=== PATIENT | male | born 1960 | race Caucasian/White ===

== ENCOUNTER 2020-06-09 17:36 | Emergency (ER) | payer MEDICARE, SELFPAY ==
--- NOTE | 2020-06-09 17:59 | ED.EYEPROB ---
HPI - Eye Problem General Chief complaint: Eye Problems Stated complaint: eye trouble Time Seen by Provider: 06/09/20 17:59 Source: patient Mode of arrival: ambulatory Limitations: no limitations History of Present Illness HPI Narrative: 59 year-old man comes to the ED today for eye pain and redness that started yesterday after he had some engine degrees during it. 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 It reflected back off the motor in into his eye. He irrigated his eye. He was able to call [employer] this morning but after he woke up from a nap today he noticed that he had crusting around his eye and was difficult to open his eye. He has some mild blurriness to his left vision. He normally wears contacts and has had rust/FB removed from his left eye. He states his tetanus was in the last for 5 years. MD chief complaint: eye pain, eye redness and eye injury Onset (ago): day(s) (1) Onset description: sudden Duration: constant Location: left eye Eye Symptoms: burning and redness Place: work Mechanism: chemical exposure Severity: moderate Context: contact lens use Treatments Prior to Arrival: irrigated eye and removed contact lens Related Data Patient tetanus UTD: Yes Home Medications Medication Instructions Recorded Confirmed atorvastatin 80 mg PO DAILY 06/09/20 06/09/20 carvedilol 6.25 mg PO DAILY 06/09/20 06/09/20 cetirizine 10 mg PO DAILY 06/09/20 06/09/20 citalopram 40 mg PO DAILY 06/09/20 06/09/20 clopidogrel 75 mg PO DAILY 06/09/20 06/09/20 furosemide [Lasix] 20 mg PO BID 06/09/20 06/09/20 lisinopril 40 mg PO DAILY 06/09/20 06/09/20 spironolactone 50 mg PO DAILY 06/09/20 06/09/20 Allergies Allergy/AdvReac Type Severity Reaction Status Date / Time amoxicillin Allergy Severe Hives / Verified 06/09/20 18:12 Red Face Review of Systems Constitutional: Constitutional: Denies chills and Denies fever(s) Eyes: Eyes: Reports as per HPI, Reports change in vision and Denies photophobia ENT: Denies dysphagia, Denies nasal congestion and Denies sore throat Cardiovascular: Cardiovascular: Denies chest pain and Denies radiating jaw, neck or arm pain Respiratory: Respiratory: Denies cough, Denies dyspnea and Denies wheezing Gastrointestinal: Gastrointestinal: Denies nausea and Denies vomiting Musculoskeletal: Musculoskeletal: Denies arthralgias and Denies joint swelling Integumentary/Breasts: Skin/Breast: Denies pruritus, Denies erythema and Denies rash Neurologic: Denies vertigo, Denies dizziness and Denies syncope Allergic/Immunologic: Allergic/Immunologic: Denies lip swelling and Denies wheezing PMFSH Past Medical History Medical History CAD (coronary artery disease) Hypertension Surgical History Surgical History S/P CABG (coronary artery bypass graft) Stented coronary artery x 8 Social History Social History Smoking status: Never smoker Substance use type: marijuana Living arrangements: with family Gender identity (if verbalized by the patient): Male Exam Const: General: healthy appearing and alert Orientation/consciousness: patient oriented x3 Limitations: no limitations Other: mild acute distress HENMT: Head: normal to inspection Face and sinus: normal facial exam Eyes: Pupils: Equal, round and reactive pupils present EOM: EOMs intact bilaterally Other: Subconjunctival hemorrhage on the nasal aspect of the left sclera without swelling. There is no fluorescein uptake of the limbus or cornea. Sweeping the lower fossa and the inverted upper eyelid with a moistened swab revealed no foreign bodies. No corneal foreign bodies are detected. Cornea is clear. Skin: General skin exam: normal color, no jaundice and no
[2020-06-09 18:00] VITALS: BP 106/55; PULSE 87; RESP 18; TEMP 37.1; O2SAT 96
[2020-06-09] MEDS: DACRIOSE EYE IRRIGATION 118 ML BOTTLE 30 ML LEFT EYE (18:24)
[2020-06-09] MEDS: TETRACAINE HCL 0.5% OPHTH SOLN 4 ML BTL 2 DROP LEFT EYE (18:25)
[2020-06-09] MEDS: FLUORESCEIN SOD 1 MG/STRIP LEFT EYE (18:25)
[2020-06-09 18:52] VITALS: BP 131/65; PULSE 62; RESP 16; TEMP 36.5; O2SAT 99
== END 2020-06-09 18:54 | disposition home or self-care (01) ==
PROVIDERS: Emergency Provider Emergency Medicine
DX: H11.32 Conjunctival hemorrhage, left eye (principal)
CPT/HCPCS: 99283; A9270

== ENCOUNTER 2022-07-29 20:42 | Emergency (ER) | payer MEDICARE, SELFPAY ==
[2022-07-29] VITALS (8 sets, daily range): BP systolic 121–130; BP diastolic 66–88; PULSE 70–84; RESP 20–22; TEMP 37; O2SAT 94–96
--- NOTE | ~2022-07-29 | XR_ITS ---
EXAMINATION: XR chest 1V portable DATE: 07/29/2022 21:15 INDICATION: Shortness of breath TECHNIQUE: frontal view of the chest was obtained. COMPARISON: None FINDINGS: The lungs are clear with no focal airspace opacities, pulmonary edema, pleural effusion or pneumothor ax. Cardiomegaly. Dual lead pacemaker seen with leads projecting over the expected locations of the r ight atrium and right ventricle. Median sternotomy wires and mediastinal surgical clips are seen, lik alcira from prior coronary artery bypass grafting. Reverse left total shoulder arthroplasty. 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 IMPRESSION: 1. Cardiomegaly. Reviewed, dictated and finalized at location A. IMPRESSION: 1. Cardiomegaly.
--- NOTE | 2022-07-29 20:50 | ECG_ITS ---
Measurements Intervals [place] Rate: 77 P: 59 GA: 160 QRS: 50 QRSD: 98 T: 140 QT: 378 QTc: 429 Interpretive Statements SINUS RHYTHM VENTRICULAR COUPLET AND VENTRICULAR PREMATURE COMPLEXES INCOMPLETE LEFT BUNDLE BRANCH BLOCK POSSIBLE LEFT ATRIAL ENLARGEMENT ST-T WAVE ABNORMALITY IN ANTEROLATERAL LEADS- CONSIDER ISCHEMIA ABNORMAL ECG NO PREVIOUS ECG AVAILABLE FOR COMPARISON Electronically Signed On 07-30-2022 6:40:21 CDT by Rolf Castro D.O.
--- NOTE | 2022-07-29 21:07 | ED.CHESTPAIN ---
HPI - Chest Pain General Chief Complaint: Shortness of Breath/Dyspnea Stated Complaint: chest pains Time Seen by Provider: 07/29/22 20:49 Source: patient and family ( ) Mode of arrival: ambulatory Limitations: no limitations History of Present Illness HPI narrative: patient is a 61-year-old white male with history of coronary artery disease, coronary artery bypass graft x4, 8 stents, was just released from [facility] yesterday afternoon after spent 2 days therefore shortness of breath. Patient's stated his troponin was elevated but the doctors did not think he had a heart attack. He stated he had 2 hours of AFib in June and was supposed to see the drill presser as an outpatient for this. patient stated they diuresed him of 8 lb down to 245 lb which is his dry weight . Patient stated that he slept most of the day and then woke up around 7:30pm with retrosternal chest pain and shortness of breath and diaphoresis. Pain is gone now but it recurs if he lays back in a starts getting short of breath and breaks out in a sweat again. He has had 2 diarrhea nonbloody stools today. Related Data Home Medications Medication Instructions Recorded Confirmed atorvastatin 80 mg tablet 80 mg PO DAILY 06/09/20 07/29/22 citalopram 40 mg tablet 40 mg PO DAILY 06/09/20 07/29/22 clopidogrel 75 mg tablet 75 mg PO DAILY 06/09/20 07/29/22 furosemide 20 mg tablet (Lasix) 20 mg PO BID 06/09/20 07/29/22 empagliflozin 25 mg tablet 25 mg PO DAILY 07/29/22 07/29/22 metoprolol succinate 100 mg 100 mg PO DAILY 07/29/22 07/29/22 tablet,extended release 24 hr sacubitril 97 mg-valsartan 103 mg 1 tablet PO BID 07/29/22 07/29/22 tablet sennosides 8.6 mg tablet 8.6 mg PO BID 07/29/22 07/29/22 spironolactone 25 mg tablet 12.5 mg PO DAILY 07/29/22 07/29/22 Allergies Allergy/AdvReac Type Severity Reaction Status Date / Time amoxicillin Allergy Severe Hives / Verified 07/29/22 20:57 Red Face Review of Systems Review of Systems: All systems reviewed & are unremarkable except as noted in HPI and below Constitutional: Constitutional: Denies chills, Denies fatigue, Denies fever(s) and Denies weakness Eyes: Eyes: Reports no additional eye complaints ENT: Reports system reviewed and no additional complaints, except as documented, Denies dizziness, Denies nasal congestion and Denies sore throat Cardiovascular: Cardiovascular: Reports as per HPI, Reports no additional cardiovascular complaints, Reports chest pain, Denies rapid heart rate, Denies radiating jaw, neck or arm pain and Denies slow heart rate Respiratory: Respiratory: Reports as per HPI, Reports no additional respiratory complaints, Denies cough, Reports dyspnea and Denies wheezing Gastrointestinal: Gastrointestinal: Denies no additional gastrointestinal complaints, Denies abdominal pain, Denies constipation, Denies heartburn, Reports diarrhea, Denies nausea and Denies vomiting Genitourinary: Genitourinary: Reports no additional male genitourinary complaints Musculoskeletal: Musculoskeletal: Reports no additional musculoskeletal complaints, Reports back pain ( Mild low back pain), Denies myalgias, Denies arthralgias, Denies joint swelling and Denies muscle cramps Integumentary/Breasts: Skin/Breast: Reports system reviewed and no additional complaints, except as docu and Denies rash Neurologic: Reports system reviewed and no additional complaints, except as documented, Denies dizziness, Denies syncope, Denies headache(s), Denies focal weakness, Denies numbness and Denies weakness Psychiatric: Psychiatric: Reports no additional psychiatric complaints Endocrine: Endocrine: Reports no additional endocrine complaints Hematologic/Lymphatic: Hematologic/Lymphatic: Reports no additional hematologic/lymphatic complaints [facility] Past Medical History Medical History (Updated 07/29/22 @ 22:01 by George Morel MD) CAD (coronary artery disease) Hypertension Surgical History Jon
[2022-07-29 21:19] LABS: Basophils Absolute Auto 0.04 K/mm3 (0.00-0.10); Basophils Percent Auto 0.4 % (0.0-1.0); Eosinophils Percent Auto 0.9 % (1.0-6.0); Hematocrit 44.7 % (40.0-54.0); Hemoglobin 14.8 g/dL (14.0-18.0); Immature Granulocyte Absolute 0.06 K/mm3 (0.00-0.00); Immature Granulocyte Percent A 0.6 % (0.0-0.0); Lymphocytes Absolute Auto 1.65 K/mm3 (1.10-4.50); Lymphocytes Percent Auto 15.5 % (18.0-42.0); Mean Corpuscular HGB Conc 33.1 g/dL (32.0-36.0); Mean Corpuscular Hemoglobin 31.6 pg (27.0-31.0); Mean Corpuscular Volume 95.5 fL (78.0-102.0); Mean Platelet Volume 10.2 fl (8.7-11.0); Monocytes Absolute Auto 0.81 K/mm3 (0.10-0.90); Monocytes Percent Auto 7.6 % (2.0-11.0); Platelet Count Result 267 K/mm3 (150-420); Red Blood Count 4.68 M/mm3 (4.70-6.10); Red Cell Distribution Width 14.1 % (11.6-14.4); White Blood Count 10.6 K/mm3 (4.8-10.8)
[2022-07-29] MEDS: ASPIRIN 81 MG CHEWABLE TABLET 324 MG PO (21:24)
--- NOTE | 2022-07-29 21:30 | PC.NURSE ---
2050 monitor applied, SR with occas PVC
[2022-07-29 21:34] LABS: INR 1.6; Partial Thromboplastin Time 27.6 SEC (23.90-30.70); Prothrombin Time 16.5 Seconds (9.50-12.10)
[2022-07-29 21:41] LABS: Alanine Aminotransferase 185 U/L (16-63); Albumin Level 3.5 g/dL (3.4-5.0); Alkaline Phosphatase 221 U/L (46-116); Anion Gap 15 mmol/L (8-16); Aspartate Amino Transferase 114 U/L (15-37); Bilirubin,Total 2.1 mg/dL (0.00-1.00); Blood Urea Nitrogen 42 mg/dL (7-18); Calcium 8.9 mg/dL (8.5-10.1); Carbon Dioxide 20 mmol/L (21-32); Chloride 101 mmol/L (98-108); Estimated CRCL calculation 51 ml/min; Estimated Glomerular Filt Rate 38; Glucose 152 mg/dL (70-99); Lipase 172 U/L (73-393); NT Pro B Type Natriuretic Pept 12205 pg/mL (0-125); Osmolality Calculated 295 mOsm/kg (285-295); Potassium 3.6 mmol/L (3.5-5.1); Sodium 136 mmol/L (136-145); Total Protein 6.8 g/dL (6.4-8.2)
[2022-07-29 21:43] LABS: Troponin I 286.2 ng/L (0.00-60.4)
[2022-07-29] MEDS: ENOXAPARIN 120 MG/0.8 ML SYRINGE 110 MG SUB-Q (21:47)
--- NOTE | 2022-07-29 21:51 | ECG_ITS ---
Measurements Intervals [place] Rate: 69 P: 61 TN: 161 QRS: 53 QRSD: 104 T: 141 QT: 415 QTc: 446 Interpretive Statements SINUS RHYTHM VENTRICULAR PREMATURE COMPLEXES POSSIBLE LEFT ATRIAL ENLARGEMENT INCOMPLETE LEFT BUNDLE BRANCH BLOCK ST-T WAVE ABNORMALITY IN ANTEROLATERAL LEADS- CONSIDER ISCHEMIA COMPARED TO ECG 07/29/2022 20:57:08 NO SIGNIFICANT CHANGES Electronically Signed On 07-30-2022 6:41:29 CDT by Rolf Castro D.O.
--- NOTE | 2022-07-30 00:15 | ECG_ITS ---
Measurements Intervals [place] Rate: 75 P: 59 LA: 157 QRS: 50 QRSD: 102 T: 120 QT: 410 QTc: 460 Interpretive Statements SINUS RHYTHM VENTRICULAR PREMATURE COMPLEX POSSIBLE LEFT ATRIAL ENLARGEMENT INCOMPLETE LEFT BUNDLE BRANCH BLOCK ST-T WAVE ABNORMALITY IN ANTEROLATERAL LEADS- CONSIDER ISCHEMIA ABNORMAL ECG COMPARED TO ECG 07/29/2022 21:57:20 NO SIGNIFICANT CHANGES Electronically Signed On 07-30-2022 6:42:15 CDT by Rolf Castro D.O.
[2022-07-30 00:17] LABS: Troponin I 278.6 ng/L (0.00-60.4)
[2022-07-30 00:29] VITALS: BP 114/75; PULSE 74; RESP 16; O2SAT 96
[2022-07-30] MEDS: NITROGLYCERIN SL 0.4 MG TABLET SUBLINGUAL (01:01)
[2022-07-30 01:12] VITALS: BP 115/83; PULSE 74; RESP 20; TEMP 36.6; O2SAT 99
--- NOTE | 2022-07-30 01:42 | PC.NURSE ---
abdiass busy with other transfers, waiting a rig to take patient to [facility]
[2022-07-30 02:14] VITALS: BP 112/87; PULSE 72; RESP 20; O2SAT 94
[2022-07-30 03:19] VITALS: BP 105/75; PULSE 74; RESP 20; TEMP 37.2; O2SAT 94
== END 2022-07-30 03:21 ==
PROVIDERS: Emergency Provider Emergency Medicine
DX: R07.9 Chest pain, unspecified (principal); I50.9 Heart failure, unspecified; R79.1 Abnormal coagulation profile; I21.4 Non-ST elevation (NSTEMI) myocardial infarction
CPT/HCPCS: 36415; 71045; 80053; 83690; 83880; 84484; 85025; 85380; 85610; 85730; 93005; 96372; 99285; A9270; J1650

== ENCOUNTER 2022-11-01 07:17 | Inpatient (IN) | payer MEDICARE, OTHER, SELFPAY ==
[2022-11-01] VITALS (16 sets, daily range): BP systolic 102–137; BP diastolic 65–106; PULSE 80–100; RESP 15–28; TEMP 35.9–36.7; O2SAT 95–100; BMI 31.1; BMI 30.7
--- NOTE | ~2022-11-01 | XR_ITS ---
EXAMINATION: XR chest 1V portable DATE: 11/03/2022 08:35 INDICATION: Congestive heart failure. TECHNIQUE: A single frontal view of the chest was obtained. COMPARISON: Chest 2 views 11/01/2022 FINDINGS: There is no pneumonia, pleural effusion, or pneumothorax. Cardiomegaly is noted. Median alvin rnotomy wires and mediastinal surgical clips are seen, likely from prior coronary artery bypass graft ing. There is a right chest wall pacer with leads in the right atrium and right ventricle. There is a left shoulder arthroplasty. IMPRESSION: 1. Cardiomegaly. Reviewed, dictated and finalized at location A. ING MACHINE ASSEMBLER IMPRESSION: 1. Cardiomegaly.
--- NOTE | ~2022-11-01 | XR_ITS ---
EXAMINATION: XR chest 1V portable DATE: 11/04/2022 16:07 INDICATION: Shortness of breath. TECHNIQUE: A single frontal view of the chest was obtained on 2 radiographs. COMPARISON: Chest single view 11/04/2022 FINDINGS: There is mild atelectasis in left lower lung zone. No pleural effusion or pneumothorax. Car diomegaly is noted. Median sternotomy wires and mediastinal surgical clips are seen, likely from prio r coronary artery bypass grafting. There is a right chest wall pacer with leads in the right atrium a nd right ventricle. There is a left shoulder arthroplasty. IMPRESSION: 1. Mild atelectasis in left lower lung zone. 2. Cardiomegaly. Reviewed, dictated and finalized at location A. INSPECTOR
--- NOTE | ~2022-11-01 | XR_ITS ---
Supine and upright views of the abdomen Clinical history: Vomiting Findings: Bowel gas pattern is nonspecific. No evidence for obstruction or free air. No abnormal mass lesion or calcification is seen. Right hip arthroplasty present. Impression: Nonspecific bowel gas pattern. Reviewed, dictated and finalized at [facility]. CENTER TRAINER Impression: Nonspecific bowel gas pattern.
--- NOTE | ~2022-11-01 | US_ITS ---
EXAMINATION: US abdomen limited DATE: 11/03/2022 17:44 INDICATION: Elevated LFTs TECHNIQUE: Multiple grayscale and Doppler ultrasound images of limited portions of the abdomen were o btained. COMPARISON: None available. FINDINGS: Not visualized. The liver is enlarged with slightly increased echogenicity and normal echotexture. No surface nodularity. Normal hepatopetal flow in the main portal vein. Fluid-filled gallbladder, witho ut stones or sludge. Prominent echogenic fat in the lawrence hepatis. Gallbladder wall thickening up to 6 mm. The common bile duct measures 4 mm. There was no sonographic Hooper sign. IMPRESSION: Hepatomegaly. Echogenic liver, most commonly due to steatosis but also can be seen with hepatitis and fibrosis. Nonspecific gallbladder wall thickening. Reviewed, dictated and finalized at location K. BALL GLOVE SHAPER IMPRESSION: Hepatomegaly. Echogenic liver, most commonly due to steatosis but also can be s een with hepatitis and fibrosis. Nonspecific gallbladder wall thickening.
--- NOTE | ~2022-11-01 | XR_ITS ---
Portable chest x-ray Comparison: 11/04/2022 Clinical History: CHF Findings: Lungs remain clear, without focal consolidation or pleural effusion. Cardiomediastinal si lhouette is stable, with pacemaker device. Bones and soft tissues are unremarkable. Impression: Clear lungs. Stable cardiomegaly, status post CABG with pacemaker device Reviewed, dictated and finalized at location . TRONIC COMPONENTS ASSEMBLER Impression: Clear lungs. Stable cardiomegaly, status post CABG with pacemaker device
--- NOTE | ~2022-11-01 | XR_ITS ---
Portable chest x-ray Comparison: 11/03/2022 Clinical History: CHF Findings: Lungs are clear, without focal consolidation or pleural effusion. Cardiomediastinal silho uette is stable, status post CABG with pacemaker device. Left shoulder arthroplasty noted. Impression: Clear lungs. Stable cardiomegaly, status post CABG with pacemaker device. Reviewed, dictated and finalized at location . RETE SAW OPERATOR Impression: Clear lungs. Stable cardiomegaly, status post CABG with pacemaker device.
--- NOTE | ~2022-11-01 | XR_ITS ---
EXAMINATION: XR chest 2V DATE: 11/01/2022 08:04 INDICATION: Shortness of breath. TECHNIQUE: Frontal and lateral views of the chest were obtained. COMPARISON: Chest single view 07/29/2022 FINDINGS: Maddie B-lines are noted, consistent with mild pulmonary edema. No pleural effusion or pneu mothorax. Cardiomegaly is noted. Median sternotomy wires and mediastinal surgical clips are seen, lik alcira from prior coronary artery bypass grafting. There is a right chest wall pacer with leads in the r ight atrium and right ventricle. There are changes of left shoulder arthroplasty. IMPRESSION: 1. Mild pulmonary edema. 2. Cardiomegaly. Reviewed, dictated and finalized at location A. OM POLISHER
--- NOTE | 2022-11-01 07:18 | ECG_ITS ---
Measurements Intervals [place] Rate: 102 P: 49 ME: 171 QRS: 52 QRSD: 102 T: 151 QT: 382 QTc: 499 Interpretive Statements SINUS TACHYCARDIA FREQUENT VENTRICULAR PREMATURE COMPLEXES ST-T WAVE ABNORMALITY IN ANTEROLATERAL LEADS- CONSIDER ISCHEMIA BASELINE ARTIFACT- I, III, AVR, AVL, V2 ABNORMAL ECG COMPARED TO ECG 07/30/2022 00:20:42 SINUS TACHYCARDIA NOW PRESENT Electronically Signed On 11-01-2022 7:50:23 CLINICAL COORDINATOR by Rolf Castro D.O.
[2022-11-01 08:03] LABS: Basophils Percent Auto 0.5 % (0.2-1.2); Eosinophils Absolute Auto 0.1 K/mm3 (0-0.3); Eosinophils Percent Auto 0.8 % (0-4.4); Hematocrit 44.8 % (42.0-52.0); Hemoglobin 14.5 g/dL (14.0-18.0); Immature Granulocyte Absolute 0.04 K/mm3 (0.00-0.031); Immature Granulocyte Percent A 0.5 % (0-0.5); Lymphocytes Absolute Auto 0.93 K/mm3 (0.9-3.2); Lymphocytes Percent Auto 11.3 % (18.3-44.2); Mean Corpuscular HGB Conc 32.4 g/dl (32-36); Mean Corpuscular Hemoglobin 29.4 pg (26-34); Mean Corpuscular Volume 90.7 fl (80-100); Mean Platelet Volume 10.1 fl (7.4-10.4); Monocytes Absolute Auto 0.5 K/mm3 (0.1-0.6); Monocytes Percent Auto 6.6 % (2.6-8.5); Neutrophils Absolute Auto 6.6 K/mm3 (1.3-6.7); Neutrophils Percent Auto 80.3 % (45.5-73.1); Platelet Count Result 252 k/mm3 (150-375); Red Blood Count 4.94 M/mm3 (4.6-6.20); Red Cell Distribution Width 16.2 % (11.5-14.5); White Blood Count 8.2 K/mm3 (4.5-10.0)
[2022-11-01 08:19] LABS: Alanine Aminotransferase 49 U/L (6-50); Albumin Level 4.7 g/dL (3.5-5.1); Alkaline Phosphatase 183 U/L (38-126); Anion Gap 12 mmol/L (8-16); Aspartate Amino Transferase 39 U/L (17-59); Bilirubin,Total 1.6 mg/dL (0.2-1.3); Blood Urea Nitrogen 31 mg/dL (9-20); Calcium 9.2 mg/dL (8.4-10.2); Carbon Dioxide 25 mmol/L (22-30); Chloride 96 mmol/L (98-107); Estimated CRCL calculation 63 ml/min; Estimated Glomerular Filt Rate 52; Glucose 125 mg/dL (65-110); Potassium 3.3 mmol/L (3.4-5.0); Sodium 133 mmol/L (137-145)
--- NOTE | 2022-11-01 08:35 | ED.GENADULT ---
HPI - General Adult General Chief complaint: Shortness of Breath/Dyspnea Stated complaint: SOB History of Present Illness HPI narrative: This is a 62-year-old male with history of heart failure and significant cardiac disease presenting ED with chief complaint of shortness of breath. Patient says that the shortness of breath started this morning, associated with nausea and vomiting, headache. He denies fever, chills, productive cough, chest pain or diarrhea. Patient has been compliant with his CHF medications. He is vaccinated against COVID and flu. patient has been in hospital repeatedly for CHF exacerbation and is having his medications adjusted. Related Data Home Medications Medication Instructions Recorded Confirmed atorvastatin 80 mg tablet 80 mg PO DAILY 06/09/20 07/29/22 citalopram 40 mg tablet 40 mg PO DAILY 06/09/20 07/29/22 clopidogrel 75 mg tablet 75 mg PO DAILY 06/09/20 07/29/22 furosemide 20 mg tablet (Lasix) 20 mg PO BID 06/09/20 07/29/22 empagliflozin 25 mg tablet 25 mg PO DAILY 07/29/22 07/29/22 metoprolol succinate 100 mg 100 mg PO DAILY 07/29/22 07/29/22 tablet,extended release 24 hr sacubitril 97 mg-valsartan 103 mg 1 tablet PO BID 07/29/22 07/29/22 tablet sennosides 8.6 mg tablet 8.6 mg PO BID 07/29/22 07/29/22 spironolactone 25 mg tablet 12.5 mg PO DAILY 07/29/22 07/29/22 Allergies Allergy/AdvReac Type Severity Reaction Status Date / Time amoxicillin Allergy Severe Hives / Verified 11/01/22 07:18 Red Face PMFSH Past Medical History Medical History CAD (coronary artery disease) Heart failure Hypertension Surgical History Surgical History History of cardiac catheterization heart catheterization in December of 2021 S/P appendectomy S/P CABG (coronary artery bypass graft) Stented coronary artery x 8 Social History Social History Smoking status: Never smoker Substance use type: marijuana Gender identity (if verbalized by the patient): Male Exam Narrative: APPEARANCE: No apparent distress. Head: atraumatic. EYES: EOMI, NOSE: Atraumatic NECK: Trachea midline RESPIRATORY: Mildly increased rate of breathing, scattered rales, CARDIOVASCULAR: RRR, no peripheral edema ABDOMINAL: distended, nontender no guarding or rebound MUSCULOSKELETAl: No obvious deformities NEURO: Alert. Moving 4/4 extremities SKIN:: Warm, dry. Normal color PSYCHIATRIC: Normal affect Course Vital Signs Vital signs: Vital Signs Temperature 98.1 F 11/01/22 07:11 Pulse Rate 100 11/01/22 07:11 Respiratory Rate 20 11/01/22 07:11 Blood Pressure 109/75 11/01/22 07:11 Pulse Oximetry 98 11/01/22 07:11 Oxygen Delivery Room Air 11/01/22 07:11 Temperature 98.1 F 11/01/22 07:11 Pulse Rate 93 11/01/22 10:00 Respiratory Rate 18 11/01/22 10:00 Blood Pressure 132/84 11/01/22 10:00 Pulse Oximetry 96 11/01/22 10:00 Oxygen Delivery Room Air 11/01/22 08:35 Medical Decision Making MDM Narrative Medical decision making narrative: This is a 62-year-old male with history of CHF and significant coronary artery disease presenting ED with shortness of breath. Differential includes CHF exacerbation, viral syndrome, pneumonia, ACS. Chest x-ray, EKG and lab work has been ordered. EKG interpretation: Rhythm [sinus], Rate 102, [place] -[normal], DC -[normal], QRS [narrow], QTC [normal], T waves - T-wave inversions in the lateral leads, ST Segments - [Negative for concerning elevations] Final interpretations: sinus tachycardia with nonspecific T-wave abnormalities chest x-ray showed cardiomegaly with mild pulmonary vascular congestion. Viral swabs [place] [address]. Initial troponin was 0.193. Patient has been given 325 of aspirin. Potassium is 3.3. This will be repleted.
[2022-11-01 08:36] LABS: NT Pro B Type Natriuretic Pept 15800 pg/mL (5-100); Troponin I 0.193 ng/mL (0.000-0.034)
[2022-11-01 08:47] LABS: INR 1.7; Prothrombin Time 19.5 Seconds (11.1-14.7)
[2022-11-01 09:51] LABS: Influenza A QL RT-PCR Negative (Negative); Influenza B QL RT-PCR Negative (Negative); SARS-CoV-2 RNA PCR Negative
[2022-11-01] MEDS: FUROSEMIDE INJ 100 MG/10 ML VIAL 80 MG IV PUSH ×2 (09:57→16:53)
[2022-11-01] MEDS: POTASSIUM CHLORIDE 20 MEQ TABLET 40 MEQ PO (10:44)
--- NOTE | 2022-11-01 11:06 | PC.NURSE ---
heart healthy food tray ordered
[2022-11-01] MEDS: ASPIRIN 81 MG CHEWABLE TABLET 324 MG PO (11:14)
--- NOTE | 2022-11-01 11:50 | ADMGEN ---
This patient, Ernie Strickland, was admitted to IMU Room 211-01. Patient/family oriented to hospital policies and general routines including ID bracelet, bed and alarms, visiting hours, pain management, procedures, bathroom and other care routines, personal items, smoking policy, room service/diet, and visiting hours. Information on how to activate the Rapid Response Team has been discussed. Patient/Family are encouraged to report perceived risks to care and to ask questions if they do not understand what they are told or what they should do.
--- NOTE | 2022-11-01 12:23 | PM.IMHP ---
H&P: HPI History of Present Illness Date/Time: 11/01/22 12:23 Chief Complaint: Shortness of breath Narrative: This is a 62-year-old male patient who does have a history of coronary artery disease and congestive heart failure. The patient came to the emergency room with complaints of shortness of breath. Started this morning and was associated with nausea vomiting. He denies any nausea vomiting diarrhea or any age she is or fevers. The patient stated that he is compliant with his congestive heart failure medications. He has been vaccinated against COVID and influenza. The patient has had multiple admissions the hospital for congestive heart failure exacerbation. Sodium is 133, potassium 3.3 and chloride 96. BUN is 31 creatinine 1.4. [place] 0[place] [address]. The patient was given IV Lasix and potassium in the emergency room. He was also given an aspirin. EKG was read as sinus tachycardia frequent ventricular premature complexes ST T wave abnormalities. Chest x-ray was read as mild pulmonary edema. Cardiomegaly. Patient is being admitted to inpatient status on the date of service of 11/01/2022 Review of Systems Review of Systems: See HPI All systems reviewed & are unremarkable except as noted in HPI and below Constitutional: Constitutional: Reports as per HPI and Reports no additional constitutional complaints Eyes: Eyes: Reports as per HPI and Reports no additional eye complaints ENT: Reports system reviewed and no additional complaints, except as documented and Reports Normal hearing present Cardiovascular: Cardiovascular: Reports no additional cardiovascular complaints Respiratory: Respiratory: Reports no additional respiratory complaints and Reports no additional respiratory complaints Gastrointestinal: Gastrointestinal: Reports as per HPI and Reports no additional gastrointestinal complaints Musculoskeletal: Musculoskeletal: Reports no additional musculoskeletal complaints Integumentary/Breasts: Skin/Breast: Reports system reviewed and no additional complaints, except as docu and Reports as per HPI Neurologic: Reports system reviewed and no additional complaints, except as documented, Reports as per HPI and Reports Normal hearing present Psychiatric: Psychiatric: Reports no additional psychiatric complaints and Reports as per HPI Endocrine: Endocrine: Reports no additional endocrine complaints Hematologic/Lymphatic: Hematologic/Lymphatic: Reports no additional hematologic/lymphatic complaints Allergic/Immunologic: Allergic/Immunologic: Reports no additional allergic/immunologic complaints [facility] Past Medical History Medical History (Updated 11/01/22 @ 16:11 by Estephanie Crawford NP) Anxiety CAD (coronary artery disease) Chronic renal failure, stage 3 (moderate) Depression Heart failure Hyperlipidemia Hypertension Surgical History Surgical History (Updated 11/01/22 @ 15:55 by Estephanie Crawford NP) History of cardiac catheterization heart catheterization in December of 2021 History of left knee replacement History of left shoulder replacement History of right knee joint replacement S/P appendectomy S/P CABG (coronary artery bypass graft) 4 vessel CABG Stented coronary artery x 8 Family History Family History Mother Congestive heart failure Diabetes mellitus Sibling Congestive heart failure Renal disease Diabetes mellitus Sibling Diabetes mellitus Social History Social History (Updated 11/01/22 @ 15:57 by Estephanie Crawford NP) Social History: The patient resides with his girlfriend. He is a lifelong nonsmoker. He has 1 son. He is and he is disabled. He denies any alcohol marijuana or illicit drugs. Code status is full code Smoking status: Never smoker Alcohol intake: never Substance use type: marijuana Last use: 10/31/22 Lack of Transportation: No Lack of Food: Never True Current Housing: I
[2022-11-01 15:25] LABS: Glucose Point of Care 127 mg/dl (65-105)
[2022-11-01] MEDS: APIXABAN 5 MG TABLET PO (16:53)
[2022-11-01 18:23] LABS: Troponin I 0.189 ng/mL (0.000-0.034)
[2022-11-01 20:08] LABS: Glucose Point of Care 131 mg/dl (65-105)
[2022-11-01] MEDS: RANOLAZINE 500 MG TAB.ER.12H PO (20:20)
[2022-11-02] VITALS (31 sets, daily range): BP systolic 111–150; BP diastolic 72–111; PULSE 83–117; RESP 15–29; TEMP 36.4–36.6; O2SAT 93–100
--- NOTE | 2022-11-02 | ECHO_ITS ---
Patient Info Name: Ernie Strickland Age: 62 years : 1960 Gender: Male Ht: 73 in Wt: 232 lbs BSA: 2.35 m2 HR: 90 bpm BP: 111 / 73 mmHg Heart Rhythm: Sinus Rhythm Technical Quality: Fair, Good Exam Date: 11/02/2022 9:20 AM Exam Location: [facility] Pulmonary Exam Room: 211 Patient Status: Inpatient Admit Date: 11/01/2022 Staff Ordering Physician: Estephanie Crawford NP Industrial Maintenance Mechanic: Elise Parrish RCS Attending Provider: Gus Londono MD Referring Physician: Ty GAONA; Exam Type: CA echo dop color flow w con Study Info Indications - heart failure Complete two-dimensional, color flow and Doppler transthoracic echocardiogram is performed with contrast to opacify the left ventricle and to improve the deliniation of the left ventricle endocardial borders. Contrast/Agitated Saline Contrast/Ag. Saline: Definity Amount: 2.00 ml Administered By: Elise Parrish Existing IV Access: Yes IV Access Condition: patent with no signs of infiltration Summary 1. Moderate left ventricular dilation with relatively severe global systolic dysfunction. 2. Marked biatrial dilation. 3. Moderate to severe mitral regurgitation resulting from annular dilation. 4. Moderate tricuspid regurgitation velocities suggest moderate if not severely elevated pulmonary artery pressure. 5. Pacemaker/ICD lead noted in the right ventricle. Left Ventricle Left ventricular chamber dimension is moderately enlarged. Left ventricular systolic function is severely reduced, estimated at 20-25%. The left ventricular diastolic function is grade I diastolic dysfunction. Right Ventricle Right ventricular chamber dimension is mildly enlarged. Linear artifact in right ventricle suggestive of catheter(s), pacemaker lead(s), or ICD lead(s). Left Atria Left atrial chamber dimension is severely enlarged. Right Atria Right atrial chamber dimension is moderately enlarged. Aortic Valve The aortic valve is normal. Pulmonic Valve The pulmonic valve is not well visualized. Mitral Valve The mitral valve has normal leaflets. There is moderate to severe mitral valve regurgitation. Tricuspid Valve The tricuspid valve leaflets are normal. There is moderate tricuspid valve regurgitation. Pericardium/Pleural The pericardium appears normal. Aorta The aortic root size at the sinus of Valsalva is normal. Left Ventricular Outflow Tract Name Value Normal LVOT 2D LVOT Diameter 2.06 cm LVOT Doppler LVOT Peak Gradient 2 mmHg LVOT Mean Gradient 1 mmHg LVOT VTI 8.35 cm LVOT VTI/AV VTI Ratio 1.00 LVOT Stroke Volume 27.93 ml LVOT CO 9.17 l/min LVOT CI 3.90 L/min/m2 Pulmonic Valve Name Value Normal
[2022-11-02 04:44] LABS: Alanine Aminotransferase 38 U/L (6-50); Albumin Level 4.2 g/dL (3.5-5.1); Alkaline Phosphatase 163 U/L (38-126); Anion Gap 8 mmol/L (8-16); Aspartate Amino Transferase 33 U/L (17-59); Bilirubin,Total 1.4 mg/dL (0.2-1.3); Blood Urea Nitrogen 28 mg/dL (9-20); Calcium 8.5 mg/dL (8.4-10.2); Carbon Dioxide 25 mmol/L (22-30); Chloride 99 mmol/L (98-107); Estimated CRCL calculation 81 ml/min; Estimated Glomerular Filt Rate > 60; Glucose 119 mg/dL (65-110); Potassium 3.4 mmol/L (3.4-5.0); Sodium 132 mmol/L (137-145)
[2022-11-02 04:45] LABS: Lactic Acid Reflex 1.5 mmol/L (0.7-2.0)
[2022-11-02 04:56] LABS: Basophils Absolute Auto 0.1 K/mm3 (0.0-0.1); Basophils Percent Auto 0.7 % (0.2-1.2); Eosinophils Absolute Auto 0.1 K/mm3 (0-0.3); Eosinophils Percent Auto 0.8 % (0-4.4); Hematocrit 43.4 % (42.0-52.0); Hemoglobin 14.4 g/dL (14.0-18.0); Immature Granulocyte Absolute 0.04 K/mm3 (0.00-0.031); Immature Granulocyte Percent A 0.4 % (0-0.5); Lymphocytes Absolute Auto 1.34 K/mm3 (0.9-3.2); Lymphocytes Percent Auto 14.7 % (18.3-44.2); Mean Corpuscular HGB Conc 33.2 g/dl (32-36); Mean Corpuscular Hemoglobin 29.6 pg (26-34); Mean Corpuscular Volume 89.3 fl (80-100); Mean Platelet Volume 10.3 fl (7.4-10.4); Monocytes Absolute Auto 0.7 K/mm3 (0.1-0.6); Monocytes Percent Auto 7.9 % (2.6-8.5); Neutrophils Absolute Auto 6.9 K/mm3 (1.3-6.7); Neutrophils Percent Auto 75.5 % (45.5-73.1); Platelet Count Result 235 k/mm3 (150-375); Red Blood Count 4.86 M/mm3 (4.6-6.20); Red Cell Distribution Width 16.1 % (11.5-14.5); White Blood Count 9.1 K/mm3 (4.5-10.0)
[2022-11-02 05:49] LABS: Phosphorus 3.2 mg/dL (2.5-4.5)
--- NOTE | 2022-11-02 08:16 | PM.IMPN ---
Progress Note: A&P Assessment and Plan (1) Heart failure: Code(s): I50.9 - Heart failure, unspecified Status: Acute Assessment and Plan: Patient states his last EF was 20%, repeat echo pending Continue heart failure medications, IV diuresis with Lasix 80 mg IV twice daily (2) Hyperlipidemia: Code(s): E78.5 - Hyperlipidemia, unspecified Status: Acute Assessment and Plan: Continue statin (3) Anxiety: Code(s): F41.9 - Anxiety disorder, unspecified Status: Acute Assessment and Plan: Continue hydroxyzine (4) Depression: Code(s): F32.A - Depression, unspecified Status: Acute Assessment and Plan: Continue duloxetine (5) Hypertension: Code(s): I10 - Essential (primary) hypertension Status: Acute Assessment and Plan: Continue metoprolol (6) CAD (coronary artery disease): Code(s): I25.10 - Atherosclerotic heart disease of [place] coronary artery without angina pectoris Status: Acute Assessment and Plan: Elevated troponin of uncertain etiology, repeat pending, concern for unstable angina due to patient's presentation earlier today Appreciate cardiology consultation The patient has a history of a 4 vessel CABG and 8 stents (7) Hypokalemia: Code(s): E87.6 - Hypokalemia Status: Acute Assessment and Plan: Replete and recheck (8) Chronic renal failure, stage 3 (moderate): Code(s): N18.30 - Chronic kidney disease, stage 3 unspecified Status: Acute Assessment and Plan: Stable Plan DVT prophylaxis with Eliquis GI prophylaxis with PPI Code status full code Subjective Date/time seen: 11/02/22 08:16 Interval history: Called to bedside because patient had crushing chest pain, shortness a breath, cough, nausea with emesis and generalized malaise. He stated it felt like when he had his last heart attack in the past. No fevers or chills. He also had palpitations and was noted to have sinus tachycardia. Troponin has been elevated, last recheck still pending. EKG was abnormal, but did not look like acute [place]. vital signs showed tachycardia in the low 100s, pulse ox was 96% on 2 L, respirations 18 and blood pressure was 129 over and 89. Due to the patient's severe symptoms and concern that it was similar to his last episode, nitro sublingual x1 was given, morphine 2 mg IV and the patient chewed aspirin 325 mg. Cardiology was notified and consulted. Review of Systems Review of Systems: 12 point review of systems was assessed and was negative except as noted in the HPI Exam Narrative: General: Clammy, diaphoretic, clearly uncomfortable HEENT: Atraumatic, normocephalic, mucous membranes moist CV: Tachycardic, S1, S2 Lungs: Clear to auscultation bilaterally, no rales or crackles noted, no wheezes, good air entry Abdomen: Soft, nontender, nondistended Extremities: Normal to inspection Skin: No rashes noted, no lesions or wounds seen Objective Data Vital Signs Vital Signs: Vital Signs - 24 hr 11/01/22 08:35 11/01/22 08:35 11/01/22 09:36 Temperature Pulse Rate 87 96 Respiratory Rate 19 28 H Blood Pressure 133/98 H 102/76 Pulse Oximetry 96 98 95 Oxygen Delivery Room Air 11/01/22 10:00 11/01/22 10:45 11/01/22 11:15 Temperature Pulse Rate 93 93 85 Respiratory Rate 18 16 15 Blood Pressure 132/84 124/86 102/65 Pulse Oximetry 96 100 97 Oxygen Delivery 11/01/22 12:07 11/01/22 12:00 11/01/22 14:00 Temperature 96.6 F L Pulse Rate 98 96 80 Respiratory Rate 22 H Blood Pressure 137/106 H Pulse Oximetry 99 Oxygen Delivery 11/01/22 15:37 11/01/22 16:00 11/01/22 16:00 Temperature 96.9 F L Pulse Rate 86 83 Respiratory Rate 20 Blood Pressure 105/71 Pulse Oximetry 99 Oxygen Delivery Room Air 11/01/22 18:00 11/01/22 20:00 11/01/22 20:00 Temperature 97.9 F Pulse Rate 96 88 88 Respiratory Rate 18 18 Blood Pressu
[2022-11-02] MEDS: ATORVASTATIN 40 MG TABLET 80 MG PO (08:25)
[2022-11-02] MEDS: RANOLAZINE 500 MG TAB.ER.12H PO ×2 (08:25→19:59)
[2022-11-02] MEDS: FUROSEMIDE INJ 100 MG/10 ML VIAL 80 MG IV PUSH ×2 (08:25→17:11)
[2022-11-02] MEDS: CLOPIDOGREL BISULFATE 75 MG TABLET PO (08:26)
[2022-11-02] MEDS: LORATADINE 10 MG TABLET PO (08:26)
[2022-11-02] MEDS: PANTOPRAZOLE 40 MG TABLET PO (08:26)
[2022-11-02] MEDS: DULoxetine HCL 20 MG CAPSULE.DR PO (08:26)
[2022-11-02] MEDS: CHOLECALCIFEROL 1,000 UNITS TABLET 1000 UNITS PO (08:26)
[2022-11-02] MEDS: EMPAGLIFLOZIN 12.5 MG TABLET PO (08:26)
[2022-11-02] MEDS: APIXABAN 5 MG TABLET PO (08:26)
[2022-11-02] MEDS: POTASSIUM CHLORIDE 20 MEQ PACKET (FOR LIQUID) 40 MEQ PO (08:27)
[2022-11-02] MEDS: METOPROLOL SUCCINATE EXT REL 12.5 MG TABCR PO (08:27)
[2022-11-02] MEDS: PERFLUTREN LIPID MICROSPHERES 1.5 ML VIAL DILUTED TO 10 ML TOTAL VOLUME IV PUSH (10:00)
[2022-11-02] MEDS: MORPHINE SULFATE (*CRX) 2 MG/ML INJ IV PUSH ×2 (11:40→16:57)
[2022-11-02] MEDS: NITROGLYCERIN SL 0.4 MG TABLET SUBLINGUAL (11:42)
[2022-11-02] MEDS: ASPIRIN 81 MG CHEWABLE TABLET 243 MG PO (11:55)
[2022-11-02 13:02] LABS: Troponin I 0.164 ng/mL (0.000-0.034)
--- NOTE | 2022-11-02 13:13 | ECG_ITS ---
Measurements Intervals [place] Rate: 120 P: 43 MD: 151 QRS: 44 QRSD: 100 T: 174 QT: 288 QTc: 408 Interpretive Statements SINUS TACHYCARDIA INCOMPLETE LEFT BUNDLE BRANCH BLOCK ST-T WAVE ABNORMALITY IN HIGH LATERAL LEADS- CONSIDER ISCHEMIA BASELINE ARTIFACT- I, III, AVR, AVL, V1, V4-V6 ABNORMAL ECG COMPARED TO ECG 11/01/2022 07:17:39 HEART RATE HAS INCREASED Electronically Signed On 11-02-2022 14:49:34 LACQUERER by Rolf Castro D.O.
--- NOTE | 2022-11-02 14:49 | ECG_ITS ---
Measurements Intervals [place] Rate: 104 P: 56 MD: 161 QRS: 61 QRSD: 94 T: 171 QT: 329 QTc: 433 Interpretive Statements SINUS TACHYCARDIA VENTRICULAR PREMATURE COMPLEX POSSIBLE LEFT ATRIAL ENLARGEMENT DELAYED PRECORDIAL R/S TRANSITION ST-T WAVE ABNORMALITY IN INF/LAT LEADS- CONSIDER ISCHEMIA BASELINE ARTIFACT- I, II, III, AVR, AVL, AVF ABNORMAL ECG COMPARED TO ECG 11/02/2022 11:44:10 NO SIGNIFICANT CHANGES Electronically Signed On 11-04-2022 14:27:49 BOX ESTIMATOR by Rolf Castro D.O.
[2022-11-02] MEDS: NITROGLYCERIN/D5W 200 MCG/ML 50 MG/250 ML BTL IV CONT (15:29)
[2022-11-02] MEDS: AMIODARONE 150 MG/D5W 100 ML 150 MG/100 ML BAG 600 MG IV CONT (15:44)
[2022-11-02] MEDS: AMIODARONE 360 MG/D5W 200 ML 360 MG/200 ML BAG 33.33 MG IV CONT ×2 (15:44→20:39)
[2022-11-02 16:19] LABS: Basophils Absolute Auto 0.1 K/mm3 (0.0-0.1); Basophils Percent Auto 0.6 % (0.2-1.2); Eosinophils Absolute Auto 0.1 K/mm3 (0-0.3); Eosinophils Percent Auto 0.4 % (0-4.4); Hematocrit 50.7 % (42.0-52.0); Hemoglobin 16.2 g/dL (14.0-18.0); Immature Granulocyte Absolute 0.07 K/mm3 (0.00-0.031); Immature Granulocyte Percent A 0.6 % (0-0.5); Lymphocytes Absolute Auto 1.97 K/mm3 (0.9-3.2); Lymphocytes Percent Auto 16.3 % (18.3-44.2); Mean Corpuscular Hemoglobin 29.9 pg (26-34); Mean Corpuscular Volume 93.5 fl (80-100); Mean Platelet Volume 10.2 fl (7.4-10.4); Monocytes Percent Auto 8.6 % (2.6-8.5); Neutrophils Absolute Auto 8.9 K/mm3 (1.3-6.7); Neutrophils Percent Auto 73.5 % (45.5-73.1); Platelet Count Result 267 k/mm3 (150-375); Red Blood Count 5.42 M/mm3 (4.6-6.20); Red Cell Distribution Width 17.6 % (11.5-14.5); White Blood Count 12.1 K/mm3 (4.5-10.0)
[2022-11-02 16:32] LABS: Alanine Aminotransferase 39 U/L (6-50); Albumin Level 4.8 g/dL (3.5-5.1); Alkaline Phosphatase 181 U/L (38-126); Anion Gap 17 mmol/L (8-16); Aspartate Amino Transferase 35 U/L (17-59); Blood Urea Nitrogen 29 mg/dL (9-20); Calcium 9.5 mg/dL (8.4-10.2); Carbon Dioxide 19 mmol/L (22-30); Chloride 99 mmol/L (98-107); Estimated CRCL calculation 60 ml/min; Estimated Glomerular Filt Rate 48; Glucose 196 mg/dL (65-110); Potassium 4.4 mmol/L (3.4-5.0); Sodium 135 mmol/L (137-145)
[2022-11-02 16:39] LABS: INR 1.9; Prothrombin Time 21.4 Seconds (11.1-14.7)
[2022-11-02 16:41] LABS: Partial Thromboplastin Time 64.4 SECONDS (22.3-36.8)
[2022-11-02] MEDS: HEPARIN SODIUM 5,000 UNITS/ML VIAL 4000 UNITS IV PUSH (16:59)
[2022-11-02] MEDS: HEPARIN SOD/D5W 100 UNITS/ML 25,000 UNITS/250 ML BAG 10 UNITS IV CONT (17:00)
[2022-11-02] MEDS: LORazepam INJ (*CRX) 2 MG/ML VIAL 0.5 MG IV PUSH (19:35)
[2022-11-02 23:22] LABS: Partial Thromboplastin Time 112.2 SECONDS (22.3-36.8)
[2022-11-03] VITALS (29 sets, daily range): BP systolic 71–130; BP diastolic 46–102; PULSE 62–90; RESP 17–32; TEMP 36.3–37.2; O2SAT 95–100
[2022-11-03] MEDS: AMIODARONE 360 MG/D5W 200 ML 360 MG/200 ML BAG 33.33 MG IV CONT (02:15)
[2022-11-03 07:48] LABS: Basophils Percent Auto 0.2 % (0.2-1.2); Eosinophils Percent Auto 0.1 % (0-4.4); Hematocrit 50.6 % (42.0-52.0); Hemoglobin 15.6 g/dL (14.0-18.0); Immature Granulocyte Absolute 0.25 K/mm3 (0.00-0.031); Immature Granulocyte Percent A 1.3 % (0-0.5); Lymphocytes Absolute Auto 0.85 K/mm3 (0.9-3.2); Lymphocytes Percent Auto 4.4 % (18.3-44.2); Mean Corpuscular HGB Conc 30.8 g/dl (32-36); Mean Corpuscular Hemoglobin 29.5 pg (26-34); Mean Corpuscular Volume 95.8 fl (80-100); Mean Platelet Volume 10.8 fl (7.4-10.4); Monocytes Absolute Auto 1.7 K/mm3 (0.1-0.6); Monocytes Percent Auto 8.7 % (2.6-8.5); Neutrophils Absolute Auto 16.4 K/mm3 (1.3-6.7); Neutrophils Percent Auto 85.3 % (45.5-73.1); Nucleated Red Blood Cells Perc 0.1 % (0.0-0.2); Platelet Count Result 281 k/mm3 (150-375); Red Blood Count 5.28 M/mm3 (4.6-6.20); Red Cell Distribution Width 17.5 % (11.5-14.5); White Blood Count 19.3 K/mm3 (4.5-10.0)
[2022-11-03 08:04] LABS: Partial Thromboplastin Time 63.9 SECONDS (22.3-36.8)
[2022-11-03] MEDS: HEPARIN SODIUM 5,000 UNITS/ML VIAL 3500 UNITS IV PUSH ×2 (08:08→14:35)
[2022-11-03] MEDS: CLOPIDOGREL BISULFATE 75 MG TABLET PO (08:36)
[2022-11-03] MEDS: ATORVASTATIN 40 MG TABLET 80 MG PO (08:36)
[2022-11-03] MEDS: CHOLECALCIFEROL 1,000 UNITS TABLET 1000 UNITS PO (08:36)
[2022-11-03] MEDS: DULoxetine HCL 20 MG CAPSULE.DR PO (08:36)
[2022-11-03] MEDS: LORATADINE 10 MG TABLET PO (08:37)
[2022-11-03] MEDS: PANTOPRAZOLE 40 MG TABLET PO (08:37)
[2022-11-03] MEDS: RANOLAZINE 500 MG TAB.ER.12H PO ×2 (08:37→20:25)
[2022-11-03] MEDS: EMPAGLIFLOZIN 12.5 MG TABLET PO (08:37)
[2022-11-03 08:45] LABS: Albumin Level 4.5 g/dL (3.5-5.1); Alkaline Phosphatase 159 U/L (38-126); Anion Gap 23 mmol/L (8-16); Bilirubin,Total 3.7 mg/dL (0.2-1.3); Blood Urea Nitrogen 35 mg/dL (9-20); Carbon Dioxide 18 mmol/L (22-30); Chloride 91 mmol/L (98-107); Estimated CRCL calculation 35 ml/min; Estimated Glomerular Filt Rate 25; Glucose 103 mg/dL (65-110); Magnesium 2.3 mg/dL (1.6-2.3); Potassium 5.3 mmol/L (3.4-5.0); Sodium 132 mmol/L (137-145)
[2022-11-03 08:49] LABS: Alanine Aminotransferase 1038 U/L (6-50); Aspartate Amino Transferase 1306 U/L (17-59)
[2022-11-03] MEDS: DOBUTamine 250 MG/D5W 250 ML 250 MG/250 ML BAG 15.81 MG IV CONT (08:58)
[2022-11-03] MEDS: AMIODARONE 360 MG/D5W 200 ML 360 MG/200 ML BAG 16.67 MG IV CONT ×2 (09:25→20:26)
--- NOTE | 2022-11-03 10:36 | P.CONCA_ITS ---
Assessment and Plan Assessment and plan (1) Hypotension: Code(s): I95.9 - Hypotension, unspecified Status: Acute Assessment and Plan: Chronic soft blood pressure with recent hypotension likely due to IV diuresis, poor cardiac output and his CHF medications. * Patient seems to walk a very fine line between being too wet and too dry. * Last night's BP was in the 80s, improved now, 100-110 mmHg after furosemide held, on dobutamine etc.. . (2) Chest discomfort: Code(s): R07.89 - Other chest pain Status: Acute Assessment and Plan: Patient complaining of chest tightness, diaphoresis and palpitations which remind him of his prior MIs and are causing a lot of concern. * Apparently had palpitations due to bigeminy when hospitalized at [facility], which caused patient a lot of anxiety. * Flat troponins and no ischemic changes on his EKGs suggest this is not from an acute ACS syndrome. * Had a cardiac catheterization a few months ago at the [facility], no intervention required, suggesting that the patient has either adequate coronary circulation or unapproachable disease. * no plans for urgent cardiac catheterization. * Will obtain records from the [facility]. * Continue usual treatment for CAD with statins, anti-platelet agents, etc. * Likely can discontinue the nitroglycerin and heparin tomorrow. (3) Chronic systolic CHF (congestive heart failure): Code(s): I50.22 - Chronic systolic (congestive) heart failure Status: Acute Assessment and Plan: Chronic systolic, and probably diastolic, CHF with severe cardiomyopathy, EF 20-25%. * On good medical therapy for cardiomyopathy, although his hypotension makes it difficult to administer meds regularly. * Looks dry rather than wet, Despite elevated proBNP (which is likely due to chronic CHF rather than acute exacerbation). No edema, chest x-ray clear. * [facility] recommended he reduce furosemide to 40 mg b.i.d. but he has been taking 80 mg b.i.d * agree with dobutamine, holding meds until blood pressure better, holding off on further diuretics. * Apparently, at least at this point, no plans for advanced therapies per patient. (4) Nonsustained ventricular tachycardia: Code(s): I47.29 - Other ventricular tachycardia Status: Acute Assessment and Plan: Nonsustained ventricular tachycardia noted last night. * Has an ICD, no known defibrillations. The VT rate, which appears to be less than 150 beats per minute, is likely below the rate cutoff for his ICD, and also the duration of VT is likely below the rate cutoff for ICD defibri llation or anti tachy pacing. * Patient reports is metoprolol has been reduced in the last few months due to low blood pressure. Perhaps better to reduce the Entresto and increase the metoprolol dose. * Currently on IV amiodarone. Likely tomorrow can discontinue it. If he continues to have runs of nonsustained VT, he may need ongoing amiodarone therapy. (5) Elevated LFTs: Code(s): R79.89 - Other specified abnormal findings of blood chemistry Status: Acute Assessment and Plan: Acute elevation of LFTs, likely due to shock liver from hypotension. * Repeat LFTs in a.m.. * Another reason to stop the amiodarone * Will hold atorvastatin as well. (6) Chronic renal failure, stage 3 (moderate): Code(s): N18.30 - Chronic kidney disease, stage 3 unspecified Status: Acute Assessment and Plan: Acute kidney injury, chronic kidney disease. * Diuretics and Entresto ar
--- NOTE | 2022-11-03 10:36 | PM.CNCAR ---
Assessment and Plan Assessment and plan (1) Hypotension: Code(s): I95.9 - Hypotension, unspecified Status: Acute Assessment and Plan: Chronic soft blood pressure with recent hypotension likely due to IV diuresis, poor cardiac output and his CHF medications. Patient seems to walk a very fine line between being too wet and too dry. Last night's BP was in the 80s, improved now, 100-110 mmHg after furosemide held, on dobutamine etc.. . (2) Chest discomfort: Code(s): R07.89 - Other chest pain Status: Acute Assessment and Plan: Patient complaining of chest tightness, diaphoresis and palpitations which remind him of his prior MIs and are causing a lot of concern. Apparently had palpitations due to bigeminy when hospitalized at [facility], which caused patient a lot of anxiety. Flat troponins and no ischemic changes on his EKGs suggest this is not from an acute ACS syndrome. Had a cardiac catheterization a few months ago at the , no intervention required, suggesting that the patient has either adequate coronary circulation or unapproachable disease. no plans for urgent cardiac catheterization. Will obtain records from the . Continue usual treatment for CAD with statins, anti-platelet agents, etc. Likely can discontinue the nitroglycerin and heparin tomorrow. (3) Chronic systolic CHF (congestive heart failure): Code(s): I50.22 - Chronic systolic (congestive) heart failure Status: Acute Assessment and Plan: Chronic systolic, and probably diastolic, CHF with severe cardiomyopathy, EF 20-25%. On good medical therapy for cardiomyopathy, although his hypotension makes it difficult to administer meds regularly. Looks dry rather than wet, Despite elevated proBNP (which is likely due to chronic CHF rather than acute exacerbation). No edema, chest x-ray clear. [facility] recommended he reduce furosemide to 40 mg b.i.d. but he has been taking 80 mg b.i.d agree with dobutamine, holding meds until blood pressure better, holding off on further diuretics. Apparently, at least at this point, no plans for advanced therapies per patient. (4) Nonsustained ventricular tachycardia: Code(s): I47.29 - Other ventricular tachycardia Status: Acute Assessment and Plan: Nonsustained ventricular tachycardia noted last night. Has an ICD, no known defibrillations. The VT rate, which appears to be less than 150 beats per minute, is likely below the rate cutoff for his ICD, and also the duration of VT is likely below the rate cutoff for ICD defibrillation or anti tachy pacing. Patient reports is metoprolol has been reduced in the last few months due to low blood pressure. Perhaps better to reduce the Entresto and increase the metoprolol dose. Currently on IV amiodarone. Likely tomorrow can discontinue it. If he continues to have runs of nonsustained VT, he may need ongoing amiodarone therapy. (5) Elevated LFTs: Code(s): R79.89 - Other specified abnormal findings of blood chemistry Status: Acute Assessment and Plan: Acute elevation of LFTs, likely due to shock liver from hypotension. Repeat LFTs in a.m.. Another reason to stop the amiodarone Will hold atorvastatin as well. (6) Chronic renal failure, stage 3 (moderate): Code(s): N18.30 - Chronic kidney disease, stage 3 unspecified Status: Acute Assessment and Plan: Acute kidney injury, chronic kidney disease. Diuretics and Entresto are on hold. Daily BMP (7) CAD (coronary artery disease): Code(s): I25.10 - Atherosclerotic heart disease of [place] coronary artery without angina pectoris Status: Acute Assessment and Plan: History of CAD, CABG, and multiple stents. Cardiac catheterization earlier this year at [facility]; no new stents were placed. Likely CAD is st
[2022-11-03] MEDS: METOPROLOL SUCCINATE EXT REL 12.5 MG TABCR PO (10:48)
--- NOTE | 2022-11-03 13:06 | WPDCNINT ---
Assessment and Plan Assessment and plan (1) Heart failure: Code(s): I50.9 - Heart failure, unspecified Status: Acute Assessment and Plan: Systolic heart failure likely related to ischemic cardiomyopathy -echocardiogram done on 11/02/2022 showed EF of 20-25% with severe global systolic dysfunction, moderate to severe mitral regurg, moderate tricuspid regurg, severely elevated pulmonary artery pressures with RVSP of 71 mmHg -continue beta-keshia , furosemide currently on hold due to worsening creatinine and hypotension -started patient on dobutamine -fluid restriction of 1500 mL per day (2) CAD (coronary artery disease): Code(s): I25.10 - Atherosclerotic heart disease of [place] coronary artery without angina pectoris Status: Acute Assessment and Plan: Chest pain likely related to ischemia, EKG did not show any acute ST-T change -troponins elevated blood have plateaued -continue ranolazine, beta-keshia, heparin infusion (3) Arrhythmia: Code(s): I49.9 - Cardiac arrhythmia, unspecified Status: Acute Assessment and Plan: Patient with nonsustained V-tach and PVCs in the intermediate Unit -likely related to NSTEMI, ischemic cardiomyopathy, pulmonary hypertension -continue amiodarone infusion per Cardiology (4) Chronic renal failure, stage 3 (moderate): Code(s): N18.30 - Chronic kidney disease, stage 3 unspecified Status: Acute Assessment and Plan: Chronic kidney disease stage 3 with worsening creatinine and secondary to hypotension, NSTEMI, history of essential hypertension, ischemic cardiomyopathy, CHF -urine output has been adequate -creatinine increased to 2.6 this morning -continue to monitor renal function, electrolytes and urine output -hyperkalemia: Will give Lokelma (5) Hypertension: Code(s): I10 - Essential (primary) hypertension Status: Acute Assessment and Plan: Continue beta-blockers (6) Hyperlipidemia: Code(s): E78.5 - Hyperlipidemia, unspecified Status: Acute Assessment and Plan: Continue atorvastatin (7) Elevated LFTs: Code(s): R79.89 - Other specified abnormal findings of blood chemistry Status: Acute Assessment and Plan: Likely related to shock liver secondary to hypotension, severe cardiomyopathy -patient has been started on dobutamine -will check hepatitis panel and RUQ ultrasound -continue monitor liver enzyme Plan DVT prophylaxis: Heparin fusion Stress ulcer prophylaxis: Protonix Nutrition: Heart healthy diet Code Status: Full code Critical Care Time Spent: 51 minutes Due to a high probability of clinically significant, life threatening deterioration, the patient required my highest level of preparedness to intervene emergently and I personally spent this critical care time directly and personally managing the patient. This critical care time included obtaining a history; examining the patient; pulse oximetry; ordering and review of studies; arranging urgent treatment with development of a management plan; evaluation of patient's response to treatment; frequent reassessment; and discussions with other providers. It was exclusive of separately billable procedures and treating other patients and teaching time. Please see Assessment and Plan section and the rest of the note for further information on patient assessment and treatment This dictation may have been done utilizing a voice recognition system. Attempts have been made to correct errors. However, there may be uncorrected grammatical, spelling, and recognitions errors present. Consulting Application Engineer Consult Note Consult date: 11/03/22 Reason for consult: Chest pain, CHF, cardiomyopathy, hypotension, arrhythmia possible nonsustained ventricular tachycardia and/or PVCs HPI: Ernie Strickland is a 62 year old male in past medical history of coronary disease, CABG x4 in 2001, coronary stents, GERD, proximal AFib, sleep apnea, anxiety, ch
[2022-11-03] MEDS: SODIUM ZIRCONIUM CYCLOSILICATE 10 GM POWD.PACK PO (14:15)
[2022-11-03] MEDS: ALBUMIN HUMAN 25% 25 GM/100 ML 100 ML IVPB ×2 (14:15→20:13)
[2022-11-03 14:29] LABS: Partial Thromboplastin Time 63.3 SECONDS (22.3-36.8)
[2022-11-03 16:13] LABS: Hepatitis B Surface Antigen Negative (Negative)
[2022-11-03 16:22] LABS: HAV RESULT Negative (Negative); Hepatitis B Core IgM Result Negative (Negative)
[2022-11-03 16:43] LABS: Hepatitis C Virus Antibody Negative (Negative)
[2022-11-03] MEDS: HEPARIN SOD/D5W 100 UNITS/ML 25,000 UNITS/250 ML BAG 12 UNITS IV CONT (18:23)
[2022-11-03] MEDS: MELATONIN 3 MG TABLET 6 MG PO (20:24)
[2022-11-03 20:41] LABS: Albumin Level 4.4 g/dL (3.5-5.1); Alkaline Phosphatase 135 U/L (38-126); Anion Gap 15 mmol/L (8-16); Bilirubin,Total 3.2 mg/dL (0.2-1.3); Blood Urea Nitrogen 44 mg/dL (9-20); Calcium 8.5 mg/dL (8.4-10.2); Carbon Dioxide 23 mmol/L (22-30); Chloride 86 mmol/L (98-107); Estimated CRCL calculation 37 ml/min; Estimated Glomerular Filt Rate 26; Glucose 123 mg/dL (65-110); Potassium 4.8 mmol/L (3.4-5.0); Sodium 124 mmol/L (137-145)
[2022-11-03 20:42] LABS: Partial Thromboplastin Time 92.7 SECONDS (22.3-36.8)
[2022-11-03 20:56] LABS: Lactic Acid Reflex 4.3 mmol/L (0.7-2.0)
[2022-11-03 21:11] LABS: Alanine Aminotransferase > 3750 U/L (6-50)
[2022-11-03 21:19] LABS: Aspartate Amino Transferase 5775 U/L (17-59)
--- NOTE | 2022-11-03 21:20 | PC.NURSE ---
Spoke with Dr. Julian regarding patient. Insert central line, and start Levophed.
[2022-11-03] MEDS: NOREPINEPHRINE 8 MG/D5W 250 ML 8 MG/250 ML BAG 9.38 MG IV CONT (21:48)
--- NOTE | 2022-11-03 22:45 | WPDPROCEDUR ---
Procedures Central Line Placement Right Femoral: Consent: I have discussed with the patient and/or surrogate, the non-emergent placement of a central venous catheter, including its clinical necessity/indication and associated potential risks and complications. The patient and/or surrogate understand(s) and acknowledge(s) the need to proceed with central venous catheter insertion as an important element of the patient's clinical management. Time Out Performed: Yes Patient Position: supine Patient placed on monitor/pulse ox: Yes Provider Prep: mask, sterile gown, sterile gloves, Max. sterile barrier precautions, cap and hand hygiene with conventional soap/water or alcohol based hand rub Central line prep: 2% Chlorhexidine scrub Local anesthesia used: lidocaine 1% Amount of anesthesia used (ml): 5 Sterile US Technique with sterile gel/sterile probe covers: Yes Central line lumen inserted: triple Panamanian: 7 Length (cm): 20 Post Procedure: sutured in place, good blood return, all ports aspirated, flushed, capped, transparent dressing, hemostatic product, antimicrobial product and securement product Post procedure x-ray: other (n/a with femoral placement) Complications: none
[2022-11-03] MEDS: LORazepam INJ (*CRX) 2 MG/ML VIAL 0.5 MG IV PUSH (23:07)
--- NOTE | 2022-11-03 23:25 | PC.NURSE ---
Updated Dr. Julian regarding patient status and drips. Restart Dobutamine when blood pressure is stable. DC Nitro drip. May start Nitropaste for chest pressure once patient has stable blood pressure. Okay to start Vasopressin. Titrate for SBP 110.
[2022-11-03 23:27] LABS: Reflex Lactic Acid Yes or No Add Lactic
[2022-11-04] VITALS (33 sets, daily range): BP systolic 72–155; BP diastolic 47–99; PULSE 62–101; RESP 15–26; TEMP 35.8–36.6; O2SAT 91–100
[2022-11-04] MEDS: VASOPRESSIN INJ 100 UNITS in DEXTROSE 5% 95 ML IV CONT (00:13)
[2022-11-04] MEDS: ALBUMIN HUMAN 25% 25 GM/100 ML 100 ML IVPB ×2 (01:24→07:35)
[2022-11-04 01:36] LABS: Partial Thromboplastin Time 84.2 SECONDS (22.3-36.8)
[2022-11-04 01:59] LABS: Alveolar/Arterial O2 Gradient 98.3 mmHg; Base Excess ABG -8.9 mEq/l (+/-2.0); Carboxyhemoglobin 0.3 % THb (0-2.0); Device NASAL CANNULA; Fractional Inspired Oxygen 36 %; HCO3 ABG 14.9 mEq/l (22.0-26.0); Methemoglobin ABG 0.4 %THb (0-1.5); Modified Allen's Test Pass; Oxygen Content ABG 21.9 %vol (16.0-22.0); Oxygen Saturation ABG 98.4 % (95.0-100.0); Oxyhemoglobin 96.8 % THb (90.0-100.0); PCO2 ABG 27.6 mmHg (35.0-45.0); PO2 ABG 126.4 mmHg (80.0-100.0); PO2 FiO2 Ratio Arterial Blood 3.51 %; Reduced Hemoglobin 2.5 %THb (0-5.0); Site Drawn RIGHT BRACHIAL
[2022-11-04] MEDS: DOBUTamine 250 MG/D5W 250 ML 250 MG/250 ML BAG 15.81 MG IV CONT (02:00)
--- NOTE | 2022-11-04 03:00 | PC.NURSE ---
Patient frustrated without being able to void, stating he wants to leave. Patient educated about leaving AMA as he is on blood pressure support medication. Patient agreeing to stay at this time.
[2022-11-04] MEDS: HYDROmorphone HCL INJ (*CRX) 1 MG/ML SYR IV PUSH (03:25)
[2022-11-04] MEDS: LIDOCAINE HCL 2% GEL UROJET 10 ML PKG MUCOUS MEM (03:25)
--- NOTE | 2022-11-04 03:25 | PC.NURSE ---
Patient complaining of not being able to void. He has been reluctant to a combs or straight cath. He agrees to try if he can have something for the pain. Dr. White notified of patient current drips and status. Okay for 1mg Dilauded IVx1 now and okay for Urojet lidocaine for catheter insertion.
--- NOTE | 2022-11-04 03:45 | PC.NURSE ---
Despite successful catheter insertion, no urine output, catheter flushed with appropriate return. Patient then bladder scanned, no urine shown on bladder scan.
[2022-11-04] MEDS: NOREPINEPHRINE 8 MG/D5W 250 ML 8 MG/250 ML BAG 56.25 MG IV CONT ×2 (03:58→08:40)
[2022-11-04 04:31] LABS: Hematocrit 46.3 % (42.0-52.0); Hemoglobin 14.7 g/dL (14.0-18.0); Mean Corpuscular HGB Conc 31.7 g/dl (32-36); Mean Corpuscular Hemoglobin 29.6 pg (26-34); Mean Corpuscular Volume 93.2 fl (80-100); Platelet Count Result 197 k/mm3 (150-375); Red Blood Count 4.97 M/mm3 (4.6-6.20); Red Cell Distribution Width 17.4 % (11.5-14.5); White Blood Count 22.5 K/mm3 (4.5-10.0)
[2022-11-04 04:54] LABS: Albumin Level 4.8 g/dL (3.5-5.1); Alkaline Phosphatase 123 U/L (38-126); Anion Gap 23 mmol/L (8-16); Bilirubin,Total 4.1 mg/dL (0.2-1.3); Blood Urea Nitrogen 45 mg/dL (9-20); Calcium 8.2 mg/dL (8.4-10.2); Carbon Dioxide 16 mmol/L (22-30); Chloride 86 mmol/L (98-107); Estimated CRCL calculation 29 ml/min; Estimated Glomerular Filt Rate 20; Glucose 101 mg/dL (65-110); Magnesium 2.2 mg/dL (1.6-2.3); Phosphorus 8.5 mg/dL (2.5-4.5); Potassium 6.3 mmol/L (3.4-5.0); Sodium 125 mmol/L (137-145)
[2022-11-04 04:55] LABS: Lactic Acid Reflex 8.1 mmol/L (0.7-2.0)
[2022-11-04 05:02] LABS: INR 6.5
[2022-11-04 05:10] LABS: Band Neutrophils Percent 12 % (0-6); Eosinophils Absolute Manual 0.22 K/mm3 (0.02-0.5); Eosinophils Percent Manual 1 % (0-4); Lymphocytes Absolute Manual 1.35 K/mm3 (1.1-4.5); Macrocytosis 1+ (NORMAL); Monocytes Percent Manual 4 % (3-9); Neutrophils Absolute Manual 20.02 K/mm3 (1.3-6.7); Neutrophils Percent Manual 77 % (46-73); Schistocytes None Seen (NORMAL); Total Cells Counted 100
[2022-11-04 05:11] LABS: Crenated RBC 2+ (NORMAL)
[2022-11-04 05:12] LABS: Burr Cells 2+ (NORMAL)
[2022-11-04 05:17] LABS: Alanine Aminotransferase 3208 U/L (6-50); Aspartate Amino Transferase 4405 U/L (17-59)
--- NOTE | 2022-11-04 05:18 | PC.NURSE ---
Updated Dr. Julian regarding Lab values and patient status. Give 1 unit FFP x1, 500ml Hespan x1. Start Dopamine, Give hyperkalemia protocol, Turn Amiodarone off and turn heparin off.
[2022-11-04] MEDS: CENTRAL LINE FLUSH 10 ML IV PUSH ×4 (06:01→21:57)
[2022-11-04] MEDS: HYDROCORTISONE SODIUM SUCCINATE 100 MG/2 ML VIAL IV PUSH ×3 (06:01→21:57)
[2022-11-04] MEDS: hetaSTARCH 6%/NACL 500 ML 250 ML IV CONT (06:01)
[2022-11-04 06:02] LABS: Fibrinogen 344 mg/dl (215-510)
[2022-11-04] MEDS: SODIUM BICARBONATE 8.4% 50 MEQ/50 ML SYRINGE IV PUSH ×4 (06:04→17:00)
[2022-11-04] MEDS: INSULIN HUMAN REGULAR (*BKC) 100 UNITS/ML 10 UNITS IV PUSH (06:08)
[2022-11-04] MEDS: DEXTROSE 50% 25 GM/50 ML SYRINGE IV PUSH (06:08)
[2022-11-04 06:18] LABS: D Dimer 0.94 ug/mL (<0.48)
[2022-11-04] MEDS: DOPamine 400 MG/D5W 250 ML 400 MG/250 ML BAG 7.91 MG IV CONT (06:19)
[2022-11-04] MEDS: SODIUM CHLORIDE 0.9% IV 100 ML 30 ML IV CONT (09:16)
[2022-11-04 09:23] LABS: Anion Gap 19 mmol/L (8-16); Blood Urea Nitrogen 50 mg/dL (9-20); Calcium 7.6 mg/dL (8.4-10.2); Carbon Dioxide 21 mmol/L (22-30); Chloride 86 mmol/L (98-107); Estimated CRCL calculation 29 ml/min; Estimated Glomerular Filt Rate 20; Glucose 146 mg/dL (65-110); Potassium 4.5 mmol/L (3.4-5.0); Sodium 126 mmol/L (137-145)
[2022-11-04] MEDS: SODIUM CHLORIDE 0.9% IV 1,000 ML 5 ML IV CONT (09:28)
[2022-11-04] MEDS: PHYTONADIONE INJ 10 MG/ML AMP IM (09:30)
[2022-11-04] MEDS: DULoxetine HCL 20 MG CAPSULE.DR PO (09:42)
[2022-11-04] MEDS: LORATADINE 10 MG TABLET PO (09:42)
[2022-11-04] MEDS: CHOLECALCIFEROL 1,000 UNITS TABLET 1000 UNITS PO (09:42)
[2022-11-04] MEDS: CLOPIDOGREL BISULFATE 75 MG TABLET PO (09:42)
[2022-11-04] MEDS: EMPAGLIFLOZIN 12.5 MG TABLET PO (09:42)
[2022-11-04] MEDS: RANOLAZINE 500 MG TAB.ER.12H PO ×2 (09:42→20:38)
[2022-11-04] MEDS: CALCIUM GLUC 2,000 MG/NS 100ML 2,000 MG/100 ML BAG 100 MG IVPB (09:46)
[2022-11-04 09:51] LABS: Procalcitonin 2.3 ng/mL
[2022-11-04] MEDS: PANTOPRAZOLE SODIUM IV 40 MG VIAL IV PUSH (10:45)
--- NOTE | 2022-11-04 10:51 | WPDINTPN ---
Progress Note: A&P Assessment and Plan (1) Shock: Code(s): R57.9 - Shock, unspecified Status: Acute Assessment and Plan: Patient in severe shock which is mostly cardiogenic but may have component of sepsis Continue Levophed, dopamine and vasopressin Patient has received albumin and FFP Continue stress dose hydrocortisone Procalcitonin is slightly elevated Check blood culture and UA/urine culture Empiric vancomycin and cefepime (2) Heart failure: Code(s): I50.9 - Heart failure, unspecified Status: Acute Assessment and Plan: Systolic heart failure likely related to ischemic cardiomyopathy -echocardiogram done on 11/02/2022 showed EF of 20-25% with severe global systolic dysfunction, moderate to severe mitral regurg, moderate tricuspid regurg, severely elevated pulmonary artery pressures with RVSP of 71 mmHg -echocardiogram done on 10/12 at [facility] also showed EF less than 40% with RV distension RV dysfunction, left ventricle hypertrophy severe MR moderate to severe TR and 4 chamber enlargement -hold beta-keshia , furosemide due to shock -cardiology following -fluid restriction of 1500 mL per day (3) CAD (coronary artery disease): Code(s): I25.10 - Atherosclerotic heart disease of [place] coronary artery without angina pectoris Status: Acute Assessment and Plan: Chest pain likely related to ischemia, EKG did not show any acute ST-T change -troponins elevated blood have plateaued -continue ranolazine, Plavix statin (4) Arrhythmia: Code(s): I49.9 - Cardiac arrhythmia, unspecified Status: Acute Assessment and Plan: Patient with nonsustained V-tach and PVCs in the intermediate Unit -likely related to NSTEMI, ischemic cardiomyopathy, pulmonary hypertension He was on amiodarone infusion were currently off (5) Chronic renal failure, stage 3 (moderate): Code(s): N18.30 - Chronic kidney disease, stage 3 unspecified Status: Acute Assessment and Plan: Chronic kidney disease stage 3 with worsening creatinine and secondary to hypotension, NSTEMI, history of essential hypertension, ischemic cardiomyopathy, CHF -urine output has been adequate -creatinine increased to 2.6 this morning -continue to monitor renal function, electrolytes and urine output -hyperkalemia: Will give Lokelma (6) Hypertension: Code(s): I10 - Essential (primary) hypertension Status: Acute Assessment and Plan: Continue beta-blockers (7) Hyperlipidemia: Code(s): E78.5 - Hyperlipidemia, unspecified Status: Acute Assessment and Plan: Continue atorvastatin (8) Elevated LFTs: Code(s): R79.89 - Other specified abnormal findings of blood chemistry Status: Acute Assessment and Plan: Likely related to shock liver secondary to hypotension, severe cardiomyopathy -patient has been started on dobutamine -will check hepatitis panel and RUQ ultrasound -continue monitor liver enzyme (9) Shock liver: Code(s): K72.00 - Acute and subacute hepatic failure without coma Status: Acute Assessment and Plan: Elevated liver enzyme Likely secondary to shock liver Monitor Ultrasound shows hepatomegaly echogenic liver Check ammonia (10) Coagulopathy: Code(s): D68.9 - Coagulation defect, unspecified Status: Acute Assessment and Plan: Patient was on apixaban now INR is 6.5 Patient received 1 unit of FFP Vitamin K ordered No active bleeding at this time Will recheck INR give additional FFP if needed (11) Acute on chronic renal failure: Code(s): N17.9 - Acute kidney failure, unspecified; N18.9 - Chronic kidney disease, unspecified Status: Acute Assessment and Plan: Oliguria worsening creatinine patient has history of chronic kidney disease but now has worsening creatinine likely secondary to cardiogenic shock Hyperkalemia was treated as below and will be monitored Will give additional b
[2022-11-04] MEDS: CEFEPIME 0.5 GM in DEXTROSE 5% IN WATER 50 ML IVPB ×2 (10:58→20:37)
[2022-11-04] MEDS: SODIUM ZIRCONIUM CYCLOSILICATE 10 GM POWD.PACK PO ×2 (11:03→21:57)
[2022-11-04 11:21] LABS: Creatine Kinase 103 U/L (55-170)
[2022-11-04 11:37] LABS: Ammonia < 9 umol/L (9-30)
[2022-11-04 12:14] LABS: Creatinine Urine 102.1 mg/dL
[2022-11-04 12:16] LABS: Add Urine Microscopic? YES; Appearance Urine Slightly Cloudy (Clear); Bilirubin Urine 1+ (Negative); Blood Urine 1+ (Negative); Color Urine Other (Yellow); Glucose Urine UA Trace mg/dL (Negative); Ketones Urine Negative (Negative); Leukocyte Esterase Ur Negative LEU/UL (Negative); Nitrate Urine Negative (Negative); Protein Urine 2+ mg/dL (Negative); Specific Grav Ur >= 1.030 (1.001-1.035); pH Urine 5.5 (5.0-9.0)
[2022-11-04 12:19] LABS: Sodium Urine Random 23 meq/L
[2022-11-04 12:28] LABS: Bacteria Urine Trace /hpf; Mucus Urine Rare /lpf; RBC Urine 21-50 /hpf (0-2); Squamous Epithelial Cell Urine Rare /hpf (Few); WBC Urine 0-3 /hpf
[2022-11-04] MEDS: ONDANSETRON INJ 4 MG/2 ML VIAL IV PUSH ×2 (13:34→14:59)
[2022-11-04 13:52] LABS: Anion Gap 19 mmol/L (8-16); Blood Urea Nitrogen 50 mg/dL (9-20); Calcium 7.6 mg/dL (8.4-10.2); Carbon Dioxide 21 mmol/L (22-30); Chloride 83 mmol/L (98-107); Estimated CRCL calculation 30 ml/min; Estimated Glomerular Filt Rate 21; Glucose 196 mg/dL (65-110); Prothrombin Time 50.9 Seconds (11.1-14.7); Sodium 123 mmol/L (137-145)
[2022-11-04 14:02] LABS: INR 5.9
[2022-11-04] MEDS: SODIUM CHLORIDE 0.9% IV 1,000 ML 999 ML IV CONT (14:18)
[2022-11-04] MEDS: MORPHINE SULFATE (*CRX) 2 MG/ML INJ IV PUSH (14:49)
--- NOTE | 2022-11-04 14:49 | ECG_ITS ---
Measurements Intervals [place] Rate: 75 P: 50 PA: 173 QRS: 50 QRSD: 105 T: 114 QT: 386 QTc: 432 Interpretive Statements SINUS RHYTHM VENTRICULAR PREMATURE COMPLEX BORDERLINE ST-T WAVE ABNORMALITY- DIFFUSE LEADS BORDERLINE ECG COMPARED TO ECG 11/02/2022 14:49:58 SINUS RHYTHM NOW PRESENT Electronically Signed On 11-04-2022 20:39:29 SHIPPING CHECKER by Rolf Castro D.O.
--- NOTE | 2022-11-04 14:53 | PM.EVENT ---
Event Note Event Note Event Note: Received call back from [facility] and I was told that patient's case was discussed with other team members and they do not feel the patient would be suitable transfer to [facility] hence was declined. I have called and discussed with [facility] transfer center and patient is now on wait list for transfer to [facility]. Dopamine has been weaned off. Continues to be on Levophed and vasopressin. 500 cc normal saline bolus was given. His INR is 5.9 and I will give him 2 more units of FFP. Patient is complaining of chest tightness. Twelve lead EKG done and reviewed and shows sinus rhythm, does not show any ST elevation but shows nonspecific T-wave changes. Will order nitroglycerin and morphine. Check serial troponin
--- NOTE | 2022-11-04 15:04 | P.CONNP_ITS ---
Assessment and Plan Assessment and plan (1) JOHNNY (acute kidney injury): Code(s): N17.9 - Acute kidney failure, unspecified Status: Acute Assessment and Plan: * most likely due to hypotension and hemodyamic instability * this is likely worse with his underlying cardiomyopathy * resulting hyperkalemia noted as well * now with declining urine output also * I agree with Dr. Boland -- I suspect he will need MARINE EQUIPMENT PRESERVATION INSPECTOR/dialysis in the next 24 - 48 hours * however, with his hemodynamic instability and need for significant v asopressor support, he would be better served with CRRT as opposed to regular intermittent hemodialysis * agree with transfer to a facility that has CRRT available * follow trend of repeat labs and UOP (2) Chronic kidney disease, stage 3: Code(s): N18.30 - Chronic kidney disease, stage 3 unspecified Status: Chronic Assessment and Plan: * baseline creatinine runs ~ 1.4 - 1.8mg/dl * this puts him at CKD stage 3A - 3B * presumably due to his cardiomyopathy (possible element of cardiorenal syndrome), vascular disease, and HTN (3) Hyperkalemia: Code(s): E87.5 - Hyperkalemia Status: Acute Assessment and Plan: * due to JOHNNY in conjunction with use of Entresto * improving with medical therapy * may recur given worsening renal dysfunction with declining urine output (4) Shock: Code(s): R57.9 - Shock, unspecified Status: Acute Assessment and Plan: * suspect cardiac but may have a component of sepsis * continue vasopressor support * follow culture data * on broad spectrum antibiotics (5) Chronic systolic CHF (congestive heart failure): Code(s): I50.22 - Chronic systolic (congestive) heart failure Status: Chronic Assessment and Plan: * known history with recent echo demonstrating EF ~ 20 - 25% with MR, TR, and pulmonary HTN * Cardiology following * on dobutamine support (6) Elevated LFTs: Code(s): R79.89 - Other specified abnormal findings of blood chemistry Status: Acute Assessment and Plan: * due to shock liver * secondary to hypotension and cardiomyopathy * follow trend of LFTs * coagulopathy noted as well Long extensive discussion (> 20 minutes) with the patient's regarding his worsening renal dysfunction, oliguria, previous hyperkalemia, and concerns for volume overload and the likely need for renal replacement therapy/dialysis fairly soon; they are aware of his likely transfer to another facility where CRRT is available given his hemodynamic instability and need for significant vasopressor support. Will continue to follow. History of Present Illness Reason for Consult Consult date: 11/04/22 Reason for consult: acute renal failure (on chronic kidney disease) Chief Complaint Chief complaint: CHF/Elevated Trop History of Present Illness Narrative: Most of the information I have obtained is from review of the electronic medical record, discussion with the physician/nurses involved in the patient's care, as well as the patient's at bedside as the patient is unable to provide much history due to his mild confusion and distress. The patient is a 62-year-old male with extensive past medical history as outlined below presented to [facility] Emergency with complaints of chest pain and shortness of breath. The chest pain and shortness of breath began on the morning of admission and was associated with nausea and vomiting. Given his known extensive cardiovascular history he presented to the
--- NOTE | 2022-11-04 15:04 | PM.CNNEP ---
Assessment and Plan Assessment and plan (1) JOHNNY (acute kidney injury): Code(s): N17.9 - Acute kidney failure, unspecified Status: Acute Assessment and Plan: most likely due to hypotension and hemodyamic instability this is likely worse with his underlying cardiomyopathy resulting hyperkalemia noted as well now with declining urine output also I agree with Dr. Boland -- I suspect he will need TENTER FRAME BACK TENDER/dialysis in the next 24 - 48 hours however, with his hemodynamic instability and need for significant vasopressor support, he would be better served with CRRT as opposed to regular intermittent hemodialysis agree with transfer to a facility that has CRRT available follow trend of repeat labs and UOP (2) Chronic kidney disease, stage 3: Code(s): N18.30 - Chronic kidney disease, stage 3 unspecified Status: Chronic Assessment and Plan: baseline creatinine runs ~ 1.4 - 1.8mg/dl this puts him at CKD stage 3A - 3B presumably due to his cardiomyopathy (possible element of cardiorenal syndrome), vascular disease, and HTN (3) Hyperkalemia: Code(s): E87.5 - Hyperkalemia Status: Acute Assessment and Plan: due to JOHNNY in conjunction with use of Entresto improving with medical therapy may recur given worsening renal dysfunction with declining urine output (4) Shock: Code(s): R57.9 - Shock, unspecified Status: Acute Assessment and Plan: suspect cardiac but may have a component of sepsis continue vasopressor support follow culture data on broad spectrum antibiotics (5) Chronic systolic CHF (congestive heart failure): Code(s): I50.22 - Chronic systolic (congestive) heart failure Status: Chronic Assessment and Plan: known history with recent echo demonstrating EF ~ 20 - 25% with MR, TR, and pulmonary HTN Cardiology following on dobutamine support (6) Elevated LFTs: Code(s): R79.89 - Other specified abnormal findings of blood chemistry Status: Acute Assessment and Plan: due to shock liver secondary to hypotension and cardiomyopathy follow trend of LFTs coagulopathy noted as well Long extensive discussion (> 20 minutes) with the patient's regarding his worsening renal dysfunction, oliguria, previous hyperkalemia, and concerns for volume overload and the likely need for renal replacement therapy/dialysis fairly soon; they are aware of his likely transfer to another facility where CRRT is available given his hemodynamic instability and need for significant vasopressor support. Will continue to follow. History of Present Illness Reason for Consult Consult date: 11/04/22 Reason for consult: acute renal failure (on chronic kidney disease) Chief Complaint Chief complaint: CHF/Elevated Trop History of Present Illness Narrative: Most of the information I have obtained is from review of the electronic medical record, discussion with the physician/nurses involved in the patient's care, as well as the patient's at bedside as the patient is unable to provide much history due to his mild confusion and distress. The patient is a 62-year-old male with extensive past medical history as outlined below presented to [facility] Emergency with complaints of chest pain and shortness of breath. The chest pain and shortness of breath began on the morning of admission and was associated with nausea and vomiting. Given his known extensive cardiovascular history he presented to the emergency room for further assessment. Workup and evaluation emergency room demonstrated the patient to be in mild distress and with labs consistent with his known history of cardiovascular disease as well as chronic kidney disease. His chest x-ray demonstrated mild pulmonary edema. It was felt that his symptoms were another exacerbation of his known chronic systolic heart failure/ischemic cardiomyopathy and he was subseque
[2022-11-04] MEDS: NOREPINEPHRINE 8 MG/D5W 250 ML 8 MG/250 ML BAG 24.38 MG IV CONT (15:33)
[2022-11-04 16:19] LABS: Alveolar/Arterial O2 Gradient 250.3 mmHg; Base Excess ABG -9.4 mEq/l (+/-2.0); Fractional Inspired Oxygen 60 %; HCO3 ABG 14.8 mEq/l (22.0-26.0); Oxygen Content ABG 20.7 %vol (16.0-22.0); Oxygen Saturation ABG 98.8 % (95.0-100.0); Oxyhemoglobin 97.3 % THb (90.0-100.0); PCO2 ABG 28.2 mmHg (35.0-45.0); PO2 ABG 146.5 mmHg (80.0-100.0); PO2 FiO2 Ratio Arterial Blood 2.44 %; pH ABG 7.337 (7.350-7.450)
[2022-11-04 16:20] LABS: Site Drawn RIGHT RADIAL
[2022-11-04 16:21] LABS: Device SIMPLE MASK; Modified Allen's Test Pass
--- NOTE | 2022-11-04 16:49 | PM.PNCARD ---
Progress Note: A&P Assessment and Plan (1) Hypotension: Code(s): I95.9 - Hypotension, unspecified Status: Acute Assessment and Plan: Chronic soft blood pressure with recent hypotension likely due to IV diuresis, poor cardiac output and his CHF medications. Severe hypotension last night requiring Levophed and vasopressin Hypotension/shock likely due to poor cardiac output. Also being evaluated for sepsis. Patient seems to walk a very fine line between being too wet and too dry. Wonder if a right heart catheterization to evaluate filling pressures would be helpful? . (2) Chest discomfort: Code(s): R07.89 - Other chest pain Status: Acute Assessment and Plan: Patient complaining of chest tightness, diaphoresis and palpitations which remind him of his prior MIs and are causing a lot of concern. Apparently had palpitations due to bigeminy when hospitalized at [facility], which caused patient a lot of anxiety. Flat troponins and no ischemic changes on his EKGs suggest this is not from an acute ACS syndrome. Had a cardiac catheterization In July at the [facility] which showed patent coronary arteries. no plans for urgent cardiac catheterization. Continue usual treatment for CAD with statins (when renal function stabilizes ), anti-platelet agents, etc. continue supportive care. (3) Chronic systolic CHF (congestive heart failure): Code(s): I50.22 - Chronic systolic (congestive) heart failure Status: Chronic Assessment and Plan: Chronic systolic, and probably diastolic, CHF with severe cardiomyopathy, EF 20-25%. Mod severe to severe MR and TR. Previously on good medical therapy for cardiomyopathy, although his hypotension makes it difficult to administer meds regularly. Looked dry rather than wet on admission despite elevated proBNP (which is likely due to chronic CHF rather than acute exacerbation). No edema, chest x-ray fairly clear. Rec'd IV fluids. Now has JVD so may be relatively, for him, euvolemic. Wonder if a right heart cath would help assess fluid status? Wonder if a mitral valve clip would be of any help? Consider resuming dobutamine. Apparently, at least at this point, no plans for advanced therapies per patient. Something to consider if no improvement. (4) Mitral regurgitation: Code(s): I34.0 - Nonrheumatic mitral (valve) insufficiency Status: Acute Assessment and Plan: Moderate to severe eccentric mitral regurgitation as well as moderate to severe to severe tricuspid regurgitation. (5) Nonsustained ventricular tachycardia: Code(s): I47.29 - Other ventricular tachycardia Status: Acute Assessment and Plan: Nonsustained ventricular tachycardia noted this admission. Has an ICD, no known defibrillations. Patient reports is metoprolol has been reduced in the last few months due to low blood pressure. Perhaps better to reduce the Entresto and increase the metoprolol dose. No significant NSVT since amio DC'd. . (6) Elevated LFTs: Code(s): R79.89 - Other specified abnormal findings of blood chemistry Status: Acute Assessment and Plan: Acute elevation of LFTs, likely due to shock liver from hypotension. Repeat LFTs in a.m.. Amiodarone and atorvastatin held. (7) Chronic renal failure, stage 3 (moderate): Code(s): N18.30 - Chronic kidney disease, stage 3 unspecified Status: Acute Assessment and Plan: Acute kidney injury, chronic kidney disease. Diuretics and Entresto are on hold. Daily BMP Anticipating pt may need CRRT (8) CAD (coronary artery disease): Code(s): I25.10 - Atherosclerotic heart disease of [place] coronary artery without angina pectoris Status: Acute Assessment and Plan: History of CAD, CABG, and multiple stents. Cardiac catheterization in Jul at [facility]; coron
[2022-11-05] VITALS (26 sets, daily range): BP systolic 96–135; BP diastolic 76–90; PULSE 73–78; RESP 18–23; TEMP 35.8–36.8; O2SAT 94–99
[2022-11-05 05:13] LABS: Basophils Percent Auto 0.1 % (0.2-1.2); Hematocrit 38.8 % (42.0-52.0); Hemoglobin 12.8 g/dL (14.0-18.0); Immature Granulocyte Absolute 0.15 K/mm3 (0.00-0.031); Lymphocytes Absolute Auto 0.59 K/mm3 (0.9-3.2); Mean Corpuscular Hemoglobin 29.6 pg (26-34); Mean Corpuscular Volume 89.6 fl (80-100); Mean Platelet Volume 11.8 fl (7.4-10.4); Monocytes Absolute Auto 0.5 K/mm3 (0.1-0.6); Neutrophils Absolute Auto 13.6 K/mm3 (1.3-6.7); Neutrophils Percent Auto 91.9 % (45.5-73.1); Nucleated Red Blood Cells Perc 0.2 % (0.0-0.2); Platelet Count Result 105 k/mm3 (150-375); Red Blood Count 4.33 M/mm3 (4.6-6.20); Red Cell Distribution Width 16.9 % (11.5-14.5); White Blood Count 14.8 K/mm3 (4.5-10.0)
[2022-11-05 05:27] LABS: Partial Thromboplastin Time 40.5 SECONDS (22.3-36.8)
[2022-11-05 05:38] LABS: Albumin Level 3.8 g/dL (3.5-5.1); Alkaline Phosphatase 109 U/L (38-126); Anion Gap 12 mmol/L (8-16); Bilirubin,Total 6.2 mg/dL (0.2-1.3); Blood Urea Nitrogen 60 mg/dL (9-20); Calcium 6.7 mg/dL (8.4-10.2); Carbon Dioxide 27 mmol/L (22-30); Chloride 85 mmol/L (98-107); Estimated CRCL calculation 31 ml/min; Estimated Glomerular Filt Rate 21; Glucose 133 mg/dL (65-110); Lactic Acid Reflex 2.9 mmol/L (0.7-2.0); Magnesium 1.9 mg/dL (1.6-2.3); Phosphorus 6.2 mg/dL (2.5-4.5); Sodium 124 mmol/L (137-145)
[2022-11-05 05:39] LABS: Platelet Estimate Decreased (Adequate)
[2022-11-05 05:40] LABS: Anisocytosis 1+ (NORMAL); Burr Cells 1+ (NORMAL); Ovalocytes 2+ (NORMAL); Poikilocytosis 1+ (NORMAL)
[2022-11-05 05:41] LABS: Crenated RBC 2+ (NORMAL); Macrocytosis 1+ (NORMAL); Schistocytes None Seen (NORMAL)
[2022-11-05 05:43] LABS: INR 6.9
[2022-11-05] MEDS: HYDROCORTISONE SODIUM SUCCINATE 100 MG/2 ML VIAL IV PUSH ×3 (05:57→21:28)
[2022-11-05] MEDS: CENTRAL LINE FLUSH 10 ML IV PUSH ×4 (05:57→21:28)
[2022-11-05 06:27] LABS: Alanine Aminotransferase 3235 U/L (6-50); Aspartate Amino Transferase 3778 U/L (17-59)
[2022-11-05 07:23] LABS: Glucose Point of Care 161 mg/dl (65-105)
[2022-11-05 08:05] LABS: Reflex Lactic Acid Yes or No Add Lactic
[2022-11-05] MEDS: SODIUM CHLORIDE 0.9% IV 250 ML 30 ML (08:05)
[2022-11-05 08:36] LABS: Lactic Acid 2.5 mmol/L (0.7-2.0)
[2022-11-05] MEDS: CEFEPIME 0.5 GM in DEXTROSE 5% IN WATER 50 ML IVPB ×2 (08:40→20:10)
[2022-11-05] MEDS: PANTOPRAZOLE SODIUM IV 40 MG VIAL IV PUSH (08:41)
--- NOTE | 2022-11-05 09:30 | ECG_ITS ---
Measurements Intervals [place] Rate: 72 P: 51 NE: 164 QRS: 50 QRSD: 106 T: 89 QT: 429 QTc: 472 Interpretive Statements SINUS RHYTHM BORDERLINE ST-T WAVE ABNORMALITY- DIFFUSE LEADS BORDERLINE ECG COMPARED TO ECG 11/04/2022 14:56:36 NO SIGNIFICANT CHANGES Electronically Signed On 11-05-2022 12:42:26 ASSOCIATE SOFTWARE APPLICATION ENGINEER by Rolf Castro D.O.
[2022-11-05] MEDS: NITROGLYCERIN SL 0.4 MG TABLET SUBLINGUAL ×3 (10:00→16:44)
[2022-11-05] MEDS: CALCIUM GLUC 2,000 MG/NS 100ML 2,000 MG/100 ML BAG 100 MG IVPB (10:03)
[2022-11-05] MEDS: RANOLAZINE 500 MG TAB.ER.12H PO ×2 (10:04→20:10)
[2022-11-05] MEDS: DULoxetine HCL 20 MG CAPSULE.DR PO (10:04)
--- NOTE | 2022-11-05 10:22 | P.PNCA_ITS ---
Progress Note: A&P Assessment and Plan (1) Hypotension: Code(s): I95.9 - Hypotension, unspecified Status: Acute Assessment and Plan: Chronic soft blood pressure with recent hypotension likely due to IV diuresis, poor cardiac output and his CHF medications. Severe hypotension 11/03/2021 requiring Levophed and vasopressin * Also being evaluated for sepsis; WBCs were 22K but C&S neg. * On antibiotics * Hypotension improved; off pressors. . (2) Chest discomfort: Code(s): R07.89 - Other chest pain Status: Acute Assessment and Plan: Ongoing chest tightness reminds him of his prior MIs and are causing a lot of concern. * Flat troponins and no ischemic changes on his EKGs suggest this is not from an acute ACS syndrome. Doubt cardiac cath would provide any benefit and, with renal fxn poor, would cause harm. * Had a cardiac catheterization in July at the [facility] which showed patent coronary arteries. 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 Mod severe to severe MR and TR. * Previously on good medical therapy for cardiomyopathy, although his hypotension makes it difficult to administer meds regularly. * Looked dry rather than wet on admission despite elevated proBNP (which is likely due to chronic CHF rather than acute exacerbation). No edema, chest x-ray fairly clear. Rec'd IV fluids, FFP with improvement in BP. Now has JVD so may be relatively, for him, euvolemic. * Sx appear to be related more to poor cardiac output rather than bad volume overload. * Will try to slowly resume his med tx for cardiomyopathy, as BP and renal fxn allow. * Resumed metop tartrate low dose. * CXR in A.m. * Wonder if a mitral valve clip would be of any help? May make LV fxn worse also. * At the moment pt appears to be improving; if worsens, resuming dobutamine. * Apparently, at least at this point, no discussion [facility]. Something to consider for his long-term benefit. If no ongoing improvement, consider referring pt to [facility] [place] to evaluate these options. (4) Mitral regurgitation: Code(s): I34.0 - Nonrheumatic mitral (valve) insufficiency Status: Acute Assessment and Plan: Moderate to severe eccentric mitral regurgitation as well as moderate tricuspid regurgitation. (5) Nonsustained ventricular tachycardia: Code(s): I47.29 - Other ventricular tachycardia Status: Acute Assessment and Plan: Nonsustained ventricular tachycardia noted this admission. * Has an ICD, no known defibrillations. * Patient reports is metoprolol has been reduced in the last few months due to low blood pressure. Perhaps better to reduce the Entresto and increase the metoprolol dose. * No significant NSVT since amio DC'd a few days ago. * Resume low dose BB . (6) Elevated LFTs: Code(s): R79.89 - Other specified abnormal findings of blood chemistry Status: Acute Assessment and Plan: Acute elevation of LFTs, likely due to shock liver from hypotension. * Slowly improving * Amiodarone
--- NOTE | 2022-11-05 10:22 | PM.PNCARD ---
Progress Note: A&P Assessment and Plan (1) Hypotension: Code(s): I95.9 - Hypotension, unspecified Status: Acute Assessment and Plan: Chronic soft blood pressure with recent hypotension likely due to IV diuresis, poor cardiac output and his CHF medications. Severe hypotension 11/03/2021 requiring Levophed and vasopressin Also being evaluated for sepsis; WBCs were 22K but C&S neg. On antibiotics Hypotension improved; off pressors. . (2) Chest discomfort: Code(s): R07.89 - Other chest pain Status: Acute Assessment and Plan: Ongoing chest tightness reminds him of his prior MIs and are causing a lot of concern. Flat troponins and no ischemic changes on his EKGs suggest this is not from an acute ACS syndrome. Doubt cardiac cath would provide any benefit and, with renal fxn poor, would cause harm. Had a cardiac catheterization in July at the [facility] which showed patent coronary arteries. 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 Mod severe to severe MR and TR. Previously on good medical therapy for cardiomyopathy, although his hypotension makes it difficult to administer meds regularly. Looked dry rather than wet on admission despite elevated proBNP (which is likely due to chronic CHF rather than acute exacerbation). No edema, chest x-ray fairly clear. Rec'd IV fluids, FFP with improvement in BP. Now has JVD so may be relatively, for him, euvolemic. Sx appear to be related more to poor cardiac output rather than bad volume overload. Will try to slowly resume his med tx for cardiomyopathy, as BP and renal fxn allow. Resumed metop tartrate low dose. CXR in A.m. Wonder if a mitral valve clip would be of any help? May make LV fxn worse also. At the moment pt appears to be improving; if worsens, resuming dobutamine. Apparently, at least at this point, no discussion of advanced therapies by the [place] per patient. Something to consider for his long-term benefit. If no ongoing improvement, consider referring pt to [facility] [place] to evaluate these options. (4) Mitral regurgitation: Code(s): I34.0 - Nonrheumatic mitral (valve) insufficiency Status: Acute Assessment and Plan: Moderate to severe eccentric mitral regurgitation as well as moderate tricuspid regurgitation. (5) Nonsustained ventricular tachycardia: Code(s): I47.29 - Other ventricular tachycardia Status: Acute Assessment and Plan: Nonsustained ventricular tachycardia noted this admission. Has an ICD, no known defibrillations. Patient reports is metoprolol has been reduced in the last few months due to low blood pressure. Perhaps better to reduce the Entresto and increase the metoprolol dose. No significant NSVT since amio DC'd a few days ago. Resume low dose BB . (6) Elevated LFTs: Code(s): R79.89 - Other specified abnormal findings of blood chemistry Status: Acute Assessment and Plan: Acute elevation of LFTs, likely due to shock liver from hypotension. Slowly improving Amiodarone and atorvastatin held. (7) Chronic renal failure, stage 3 (moderate): Code(s): N18.30 - Chronic kidney disease, stage 3 unspecified Status: Acute Assessment and Plan: Acute kidney injury 2nd to hypotension, chronic kidney disease. Diuretics and Entresto are on hold. Daily BMP Anticipating pt may need CRRT, though now slowly improving. (8) CAD (coronary arter
--- NOTE | 2022-11-05 11:48 | WPDINTPN ---
Progress Note: A&P Assessment and Plan (1) Shock: Code(s): R57.9 - Shock, unspecified Status: Acute Assessment and Plan: Patient in severe shock which is mostly cardiogenic but may have component of sepsis He was on Levophed, dopamine and vasopressin He was given cautious amount of IV fluids, albumin Vasopressors have been weaned off. Monitor He is getting 2 units of FFP for his coagulopathy Continue stress dose hydrocortisone Procalcitonin is slightly elevated. UA negative Pending blood culture and urine culture Continue Empiric vancomycin and cefepime (2) Heart failure: Code(s): I50.9 - Heart failure, unspecified Status: Acute Assessment and Plan: Systolic heart failure likely related to ischemic cardiomyopathy -echocardiogram done on 11/02/2022 showed EF of 20-25% with severe global systolic dysfunction, moderate to severe mitral regurg, moderate tricuspid regurg, severely elevated pulmonary artery pressures with RVSP of 71 mmHg -echocardiogram done on 10/12 at [facility] also showed EF less than 40% with RV distension RV dysfunction, left ventricle hypertrophy severe MR moderate to severe TR and 4 chamber enlargement -hold beta-ekshia , furosemide due to shock -cardiology following -fluid restriction of 1500 mL per day (3) CAD (coronary artery disease): Code(s): I25.10 - Atherosclerotic heart disease of [place] coronary artery without angina pectoris Status: Acute Assessment and Plan: Chest pain likely related to ischemia, EKG did not show any acute ST-T change -troponins elevated blood have plateaued -continue ranolazine, Plavix -hold statin due to elevated liver enzymes (4) Arrhythmia: Code(s): I49.9 - Cardiac arrhythmia, unspecified Status: Acute Assessment and Plan: Patient had nonsustained V-tach and PVCs in the intermediate Unit and was on amiodarone for brief. But now off -likely related to NSTEMI, ischemic cardiomyopathy, pulmonary hypertension -monitor (5) Hyperlipidemia: Code(s): E78.5 - Hyperlipidemia, unspecified Status: Acute Assessment and Plan: atorvastatin on hold due to elevated liver enzymes (6) Elevated LFTs: Code(s): R79.89 - Other specified abnormal findings of blood chemistry Status: Acute Assessment and Plan: Likely related to shock liver secondary to hypotension, severe cardiomyopathy -negative hepatitis panel - RUQ ultrasound Hepatomegaly. Echogenic liver, most commonly due to steatosis but also can be seen with hepatitis and fibrosis. Nonspecific gallbladder wall thickening. -continue monitor liver enzyme -normal ammonia (7) Shock liver: Code(s): K72.00 - Acute and subacute hepatic failure without coma Status: Acute Assessment and Plan: See above (8) Coagulopathy: Code(s): D68.9 - Coagulation defect, unspecified Status: Acute Assessment and Plan: Patient was on apixaban now coagulopathic likely secondary to liver dysfunction Patient received 1 unit of FFP and vitamin K INR improved to 5.9 but back up to 6.9 today Patient is getting 2 units of FFP Trying to be cautious with FFP to prevent volume overload No obvious signs of bleeding Continue PPI Monitor (9) Acute on chronic renal failure: Code(s): N17.9 - Acute kidney failure, unspecified; N18.9 - Chronic kidney disease, unspecified Status: Acute Assessment and Plan: Oliguria worsening creatinine patient has history of chronic kidney disease but now has worsening creatinine likely secondary to shock Hyperkalemia was treated as below and will be monitored Will give additional bicarb Now off vasopressors 11/04 I anticipated that patient will need renal replacement therapy and due to him being on multiple vasopressors he will need CRRT. Transfer was attempted to [place] or [facility] but they do not have any bed available. Patient still at risk of needing renal repla
[2022-11-05] MEDS: NITROGLYCERIN OINTMENT 1 INCH DOSE TRANSDERM ×2 (12:41→16:57)
--- NOTE | 2022-11-05 12:52 | P.PNNP_ITS ---
Progress Note: A&P Assessment and Plan (1) JOHNNY (acute kidney injury): Code(s): N17.9 - Acute kidney failure, unspecified Status: Acute Assessment and Plan: * most likely due to hypotension and hemodyamic instability * this is likely worse with his underlying cardiomyopathy * resulting hyperkalemia noted as well * now with declining urine output also * he remains at risk for needing PACU NURSE/dialysis * initial concern is that he may require CRRT given his hemodynamic instability but he is off pressors now * follow trend of repeat labs and UOP (2) Chronic kidney disease, stage 3: Code(s): N18.30 - Chronic kidney disease, stage 3 unspecified Status: Chronic Assessment and Plan: * baseline creatinine runs ~ 1.4 - 1.8mg/dl * this puts him at CKD stage 3A - 3B * presumably due to his cardiomyopathy (possible element of cardiorenal syndrome), vascular disease, and HTN (3) Hyperkalemia: Code(s): E87.5 - Hyperkalemia Status: Acute Assessment and Plan: * due to JOHNNY in conjunction with use of Entresto * improving with medical therapy * may recur given worsening renal dysfunction with declining urine output (4) Shock: Code(s): R57.9 - Shock, unspecified Status: Acute Assessment and Plan: * suspect cardiac but may have a component of sepsis * off vasopressor support at this time * follow culture data * on broad spectrum antibiotics (5) Chronic systolic CHF (congestive heart failure): Code(s): I50.22 - Chronic systolic (congestive) heart failure Status: Chronic Assessment and Plan: * known history with recent echo demonstrating EF ~ 20 - 25% with MR, TR, and pulmonary HTN * Cardiology following * follow hemodynamics (6) Elevated LFTs: Code(s): R79.89 - Other specified abnormal findings of blood chemistry Status: Acute Assessment and Plan: * due to shock liver * secondary to hypotension and cardiomyopathy * follow trend of LFTs * coagulopathy noted as well Will continue to follow. Subjective Date/time seen: 11/05/22 12:52 Able to be weaned of vasopressor therapy overnight/early this AM with relatively stable hemodynamics at this time; urine output seems a bit better and renal function/creatinine appears to have stabilized by AM labs; continues to have on/off chest pain along with nausea - both symptoms better with sublingual nitroglycerin; respiratory status seems relatively stable as well. Exam Narrative: General: WD/WN male in NAD Heart: normal S1 and S2; no rub Lungs: coarse and decreased at bases Abdomen: soft, nontender, nondistended, positive bowel sounds Extremities: no cyanosis or clubbing; no edema Skin: warm and dry Objective Data Vital Signs Vital Signs: Vital Signs Temp Pulse Resp BP Pulse Ox O2 Del Method O2 Flow Rate 11/05/22 12:00 74 11/05/22 12:00 77 22 H 116/83 98 11/05/22 10:00 73 21 H 112/80 98 11/05/22 11:27 95 Nasal Cannula 3 11/05/22 10:00 74 11/05/22 10:48 98.2 F 77 20 122/89 98 11/05/22 08:00 97 Nasal Cannula 3 11/05/22 08:00 76 11/05/22 09:13 97.6 F 74 22 H 118/81 98 11/05/22 08:00 97.8 F 74 20 105/82 96 11/05/22 08:57 98 F 75 21 H 107/82 98 11/05/22 08:10 97.9 F
--- NOTE | 2022-11-05 12:52 | PM.PNNEP ---
Progress Note: A&P Assessment and Plan (1) JOHNNY (acute kidney injury): Code(s): N17.9 - Acute kidney failure, unspecified Status: Acute Assessment and Plan: most likely due to hypotension and hemodyamic instability this is likely worse with his underlying cardiomyopathy resulting hyperkalemia noted as well now with declining urine output also he remains at risk for needing ASSEMBLY REPAIRER/dialysis initial concern is that he may require CRRT given his hemodynamic instability but he is off pressors now follow trend of repeat labs and UOP (2) Chronic kidney disease, stage 3: Code(s): N18.30 - Chronic kidney disease, stage 3 unspecified Status: Chronic Assessment and Plan: baseline creatinine runs ~ 1.4 - 1.8mg/dl this puts him at CKD stage 3A - 3B presumably due to his cardiomyopathy (possible element of cardiorenal syndrome), vascular disease, and HTN (3) Hyperkalemia: Code(s): E87.5 - Hyperkalemia Status: Acute Assessment and Plan: due to JOHNNY in conjunction with use of Entresto improving with medical therapy may recur given worsening renal dysfunction with declining urine output (4) Shock: Code(s): R57.9 - Shock, unspecified Status: Acute Assessment and Plan: suspect cardiac but may have a component of sepsis off vasopressor support at this time follow culture data on broad spectrum antibiotics (5) Chronic systolic CHF (congestive heart failure): Code(s): I50.22 - Chronic systolic (congestive) heart failure Status: Chronic Assessment and Plan: known history with recent echo demonstrating EF ~ 20 - 25% with MR, TR, and pulmonary HTN Cardiology following follow hemodynamics (6) Elevated LFTs: Code(s): R79.89 - Other specified abnormal findings of blood chemistry Status: Acute Assessment and Plan: due to shock liver secondary to hypotension and cardiomyopathy follow trend of LFTs coagulopathy noted as well Will continue to follow. Subjective Date/time seen: 11/05/22 12:52 Able to be weaned of vasopressor therapy overnight/early this AM with relatively stable hemodynamics at this time; urine output seems a bit better and renal function/creatinine appears to have stabilized by AM labs; continues to have on/off chest pain along with nausea - both symptoms better with sublingual nitroglycerin; respiratory status seems relatively stable as well. Exam Narrative: General: WD/WN male in NAD Heart: normal S1 and S2; no rub Lungs: coarse and decreased at bases Abdomen: soft, nontender, nondistended, positive bowel sounds Extremities: no cyanosis or clubbing; no edema Skin: warm and dry Objective Data Vital Signs Vital Signs: Vital Signs Temp Pulse Resp BP Pulse Ox O2 Del Method O2 Flow Rate 11/05/22 12:00 74 11/05/22 12:00 77 22 H 116/83 98 11/05/22 10:00 73 21 H 112/80 98 11/05/22 11:27 95 Nasal Cannula 3 11/05/22 10:00 74 11/05/22 10:48 98.2 F 77 20 122/89 98 11/05/22 08:00 97 Nasal Cannula 3 11/05/22 08:00 76 11/05/22 09:13 97.6 F 74 22 H 118/81 98 11/05/22 08:00 97.8 F 74 20 105/82 96 11/05/22 08:57 98 F 75 21 H 107/82 98 11/05/22 08:10 97.9 F 77 23 H 106/77 97 11/05/22 07:55 98 F 77 22 H 126/81 98 11/05/22 06:00 75 22 H 123/84 94 11/05/22 06:00 75 11/05/22 04:00 78 11/05/22 04:00 97.4 F L 77 21 H 114/90 97 11/05/22 03:55 96 Nasal Cannula 3 11/05/22 02:00 77 21 H 117/76 97 11/05/22 02:00 77 11/05/22 03:53 75 135/87 11/05/22 02:38 99 Nasal Cannula 3 11/04/22 21:05 99 Nasal Cannula 4 11/05/22 01:44 125/87 11/05/22 00:00 97.4 F L 77 22 H 117/84 97 11/05/22 00:00 77 11/05/22 00:00 98 Nasal Cannula 3 11/05/22 00:20 116/85 11/04/22 22:00
[2022-11-05] MEDS: MORPHINE SULFATE (*CRX) 2 MG/ML INJ IV PUSH (18:17)
[2022-11-05] MEDS: METOPROLOL TARTRATE 6.25 MG TABLET PO (20:10)
[2022-11-05] MEDS: ONDANSETRON INJ 4 MG/2 ML VIAL IV PUSH (22:29)
[2022-11-05] MEDS: MORPHINE SULFATE (*CRX) 4 MG/ML INJ IV PUSH (23:12)
[2022-11-06] VITALS (15 sets, daily range): BP systolic 99–113; BP diastolic 74–84; PULSE 65–74; RESP 13–22; TEMP 35.7–36.3; O2SAT 91–98
[2022-11-06] MEDS: HYDROCORTISONE SODIUM SUCCINATE 100 MG/2 ML VIAL IV PUSH (05:15)
[2022-11-06] MEDS: CENTRAL LINE FLUSH 10 ML IV PUSH ×3 (05:15→17:15)
[2022-11-06 05:35] LABS: Basophils Percent Auto 0.1 % (0.2-1.2); Hematocrit 40.3 % (42.0-52.0); Hemoglobin 13.3 g/dL (14.0-18.0); Immature Granulocyte Absolute 0.15 K/mm3 (0.00-0.031); Immature Granulocyte Percent A 1.1 % (0-0.5); Immature Platelet Fraction Pct 15.7 % (0.9-11.2); Lymphocytes Absolute Auto 0.46 K/mm3 (0.9-3.2); Lymphocytes Percent Auto 3.4 % (18.3-44.2); Mean Platelet Volume 11.5 fl (7.4-10.4); Monocytes Absolute Auto 0.9 K/mm3 (0.1-0.6); Monocytes Percent Auto 6.5 % (2.6-8.5); Neutrophils Percent Auto 88.9 % (45.5-73.1); Nucleated Red Blood Cells Absolute Auto 0.1 K/mm3 (0.0-0.012); Nucleated Red Blood Cells Perc 0.4 % (0.0-0.2); Platelet Count Result 82 k/mm3 (150-375); Red Blood Count 4.43 M/mm3 (4.6-6.20); Red Cell Distribution Width 17.4 % (11.5-14.5); White Blood Count 13.5 K/mm3 (4.5-10.0)
[2022-11-06 05:40] LABS: Prothrombin Time 52.7 Seconds (11.1-14.7)
[2022-11-06 05:45] LABS: Lactic Acid Reflex 3.6 mmol/L (0.7-2.0)
[2022-11-06 06:12] LABS: Albumin Level 4.2 g/dL (3.5-5.1); Alkaline Phosphatase 130 U/L (38-126); Anion Gap 15 mmol/L (8-16); Bilirubin,Total 8.4 mg/dL (0.2-1.3); Blood Urea Nitrogen 75 mg/dL (9-20); Calcium 7.3 mg/dL (8.4-10.2); Carbon Dioxide 26 mmol/L (22-30); Chloride 83 mmol/L (98-107); Estimated CRCL calculation 30 ml/min; Estimated Glomerular Filt Rate 21; Glucose 118 mg/dL (65-110); Magnesium 2.1 mg/dL (1.6-2.3); Phosphorus 6.7 mg/dL (2.5-4.5); Potassium 4.3 mmol/L (3.4-5.0); Sodium 124 mmol/L (137-145)
[2022-11-06 06:36] LABS: Alanine Aminotransferase 2852 U/L (6-50); Aspartate Amino Transferase 2575 U/L (17-59)
[2022-11-06 06:40] LABS: INR 6.1
[2022-11-06 08:09] LABS: Anisocytosis 1+ (NORMAL); Macrocytosis 1+ (NORMAL); Platelet Estimate Decreased (Adequate); Schistocytes None Seen (NORMAL)
[2022-11-06 08:10] LABS: Burr Cells 1+ (NORMAL)
[2022-11-06] MEDS: MORPHINE SULFATE (*CRX) 4 MG/ML INJ IV PUSH (08:12)
[2022-11-06 08:27] LABS: Reflex Lactic Acid Yes or No Add Lactic
[2022-11-06] MEDS: SODIUM CHLORIDE 0.9% IV 1,000 ML 100 ML IV CONT (09:14)
[2022-11-06] MEDS: PANTOPRAZOLE SODIUM IV 40 MG VIAL IV PUSH (09:23)
[2022-11-06] MEDS: RANOLAZINE 500 MG TAB.ER.12H PO (09:23)
[2022-11-06] MEDS: NITROGLYCERIN OINTMENT 1 INCH DOSE TRANSDERM ×3 (09:24→17:14)
[2022-11-06] MEDS: DULoxetine HCL 20 MG CAPSULE.DR PO (09:24)
[2022-11-06] MEDS: METOPROLOL TARTRATE 6.25 MG TABLET PO (09:24)
[2022-11-06] MEDS: CEFEPIME 0.5 GM in DEXTROSE 5% IN WATER 50 ML IVPB (09:25)
[2022-11-06] MEDS: PHYTONADIONE 5 MG TABLET 10 MG PO (09:25)
[2022-11-06] MEDS: MORPHINE SULFATE (*CRX) 2 MG/ML INJ IV PUSH ×3 (10:57→18:10)
--- NOTE | 2022-11-06 11:25 | P.PNNP_ITS ---
Progress Note: A&P Assessment and Plan (1) JOHNNY (acute kidney injury): Code(s): N17.9 - Acute kidney failure, unspecified Status: Acute Assessment and Plan: * most likely due to hypotension and hemodyamic instability * this is likely worse with his underlying cardiomyopathy * resulting hyperkalemia on admission noted as well * however, urine output seems to have improved * he still remains at risk for needing CHASER HELPER/dialysis * follow trend of repeat labs and UOP (2) Chronic kidney disease, stage 3: Code(s): N18.30 - Chronic kidney disease, stage 3 unspecified Status: Chronic Assessment and Plan: * baseline creatinine runs ~ 1.4 - 1.8mg/dl * this puts him at CKD stage 3A - 3B * presumably due to his cardiomyopathy (possible element of cardiorenal syndrome), vascular disease, and HTN (3) Hyperkalemia: Code(s): E87.5 - Hyperkalemia Status: Acute Assessment and Plan: * due to JOHNNY in conjunction with use of Entresto * improving with medical therapy * follow trend (4) Shock: Code(s): R57.9 - Shock, unspecified Status: Acute Assessment and Plan: * suspect cardiac but may have a component of sepsis * off vasopressor support at this time * follow culture data * on broad spectrum antibiotics (5) Chronic systolic CHF (congestive heart failure): Code(s): I50.22 - Chronic systolic (congestive) heart failure Status: Chronic Assessment and Plan: * known history with recent echo demonstrating EF ~ 20 - 25% with MR, TR, and pulmonary HTN * Cardiology following * follow hemodynamics (6) Elevated LFTs: Code(s): R79.89 - Other specified abnormal findings of blood chemistry Status: Acute Assessment and Plan: * due to shock liver * secondary to hypotension and cardiomyopathy * follow trend of LFTs * coagulopathy noted as well Will continue to follow. Subjective Date/time seen: 11/06/22 11:25 Stable hemodynamics in the last 24 hours without the need for vasopressor therapy; respiratory status seems stable/unchanged and noted increased urine output in the last 24 hours and renal function/creatinine seems relatively stable; still with on/off chest pain but not currently. Exam Narrative: General: WD/WN male in NAD Heart: normal S1 and S2; no rub Lungs: coarse and decreased at bases Abdomen: soft, nontender, nondistended, positive bowel sounds Extremities: no cyanosis or clubbing; no edema Skin: warm and intact Objective Data Vital Signs Vital Signs: Vital Signs Temp Pulse Resp BP Pulse Ox O2 Del Method O2 Flow Rate 11/06/22 10:00 72 11/06/22 08:00 71 11/06/22 10:50 98 Nasal Cannula 3 11/06/22 09:24 70 11/06/22 06:00 69 17 99/74 L 96 11/06/22 06:00 69 11/06/22 04:00 69 11/06/22 04:00 96 Nasal Cannula 3 11/06/22 02:00 74 21 H 102/78 98 11/06/22 02:00 70 11/06/22 04:00 97.2 F L 71 20 107/78 96 11/06/22 00:00 96.2 F L 69 19 102/75 98 11/06/22 00:00 69 11/06/22 00:00 95 Nasal Cannula 3 11/05/22 20:00 73 11/05/22 22:00 74 18 115/80 98 11/05/22 22:00 74 11/05/22 20:00 96 Nasal Cannula 3
--- NOTE | 2022-11-06 11:25 | PM.PNNEP ---
Progress Note: A&P Assessment and Plan (1) JOHNNY (acute kidney injury): Code(s): N17.9 - Acute kidney failure, unspecified Status: Acute Assessment and Plan: most likely due to hypotension and hemodyamic instability this is likely worse with his underlying cardiomyopathy resulting hyperkalemia on admission noted as well however, urine output seems to have improved he still remains at risk for needing CARDIOVASCULAR DISEASE SPECIALIST/dialysis follow trend of repeat labs and UOP (2) Chronic kidney disease, stage 3: Code(s): N18.30 - Chronic kidney disease, stage 3 unspecified Status: Chronic Assessment and Plan: baseline creatinine runs ~ 1.4 - 1.8mg/dl this puts him at CKD stage 3A - 3B presumably due to his cardiomyopathy (possible element of cardiorenal syndrome), vascular disease, and HTN (3) Hyperkalemia: Code(s): E87.5 - Hyperkalemia Status: Acute Assessment and Plan: due to JOHNNY in conjunction with use of Entresto improving with medical therapy follow trend (4) Shock: Code(s): R57.9 - Shock, unspecified Status: Acute Assessment and Plan: suspect cardiac but may have a component of sepsis off vasopressor support at this time follow culture data on broad spectrum antibiotics (5) Chronic systolic CHF (congestive heart failure): Code(s): I50.22 - Chronic systolic (congestive) heart failure Status: Chronic Assessment and Plan: known history with recent echo demonstrating EF ~ 20 - 25% with MR, TR, and pulmonary HTN Cardiology following follow hemodynamics (6) Elevated LFTs: Code(s): R79.89 - Other specified abnormal findings of blood chemistry Status: Acute Assessment and Plan: due to shock liver secondary to hypotension and cardiomyopathy follow trend of LFTs coagulopathy noted as well Will continue to follow. Subjective Date/time seen: 11/06/22 11:25 Stable hemodynamics in the last 24 hours without the need for vasopressor therapy; respiratory status seems stable/unchanged and noted increased urine output in the last 24 hours and renal function/creatinine seems relatively stable; still with on/off chest pain but not currently. Exam Narrative: General: WD/WN male in NAD Heart: normal S1 and S2; no rub Lungs: coarse and decreased at bases Abdomen: soft, nontender, nondistended, positive bowel sounds Extremities: no cyanosis or clubbing; no edema Skin: warm and intact Objective Data Vital Signs Vital Signs: Vital Signs Temp Pulse Resp BP Pulse Ox O2 Del Method O2 Flow Rate 11/06/22 10:00 72 11/06/22 08:00 71 11/06/22 10:50 98 Nasal Cannula 3 11/06/22 09:24 70 11/06/22 06:00 69 17 99/74 L 96 11/06/22 06:00 69 11/06/22 04:00 69 11/06/22 04:00 96 Nasal Cannula 3 11/06/22 02:00 74 21 H 102/78 98 11/06/22 02:00 70 11/06/22 04:00 97.2 F L 71 20 107/78 96 11/06/22 00:00 96.2 F L 69 19 102/75 98 11/06/22 00:00 69 11/06/22 00:00 95 Nasal Cannula 3 11/05/22 20:00 73 11/05/22 22:00 74 18 115/80 98 11/05/22 22:00 74 11/05/22 20:00 96 Nasal Cannula 3 11/05/22 20:27 CPAP 11/05/22 20:10 73 11/05/22 20:00 96.4 F L 74 18 103/77 96 11/05/22 17:59 77 22 H 101/76 98 11/05/22 17:59 77 11/05/22 16:00 78 20 96/82 L 98 11/05/22 16:00 77 11/05/22 15:46 98 Nasal Cannula 3 Intake/Output Intake/Output: Intake & Output 11/03/22 11/04/22 11/05/22 11/06/22 23:59 23:59 23:59 23:59 Intake Total 2270 2317 2188 740 Output Total 3803 545 6495 350 Balance 1070 2017 888 390 Meds/Results Medications: Active Medications Generic Name Dose Route Start Last Admin Trade Name Freq PRN Reason Stop Dose Admin Atorvastatin Calcium 80 mg 11/02/22 09:00 11/03/22 08:36 Atorva
--- NOTE | 2022-11-06 11:45 | WPDINTPN ---
Progress Note: A&P Assessment and Plan (1) Shock: Code(s): R57.9 - Shock, unspecified Status: Acute Assessment and Plan: Patient in severe shock which is mostly cardiogenic but may have component of sepsis He was on Levophed, dopamine and vasopressin He was given cautious amount of IV fluids, albumin Vasopressors have been weaned off. 1/ received 2 units of FFP for his coagulopathy Wean stress dose hydrocortisone Although his blood pressure is adequate his lactic acid continues to be high which could be secondary to poor cardiac output or impaired hepatic clearance. Will give 1 L of normal saline today repeat lactic acid level Procalcitonin is slightly elevated. UA negative blood culture and urine culture are negative for now Continue Empiric vancomycin and cefepime. Will deescalate antibiotics after 48 hours if cultures remain negative (2) Chest pain: Code(s): R07.9 - Chest pain, unspecified Status: Acute Assessment and Plan: Patient continues to have intermittent episodes of chest pain. Multiple EKGs did not show any significant ST elevation or ischemic changes. His troponins have remained flat. Cardiology aware and recommend conservative management He is on Ranexa beta-keshia He has nitroglycerin patch on P.r.n. morphine is ordered Per Cardiology had cardiac catheterization few months ago which did not show any significant obstructive disease that was amenable to intervention. He is already anticoagulated and coagulopathy No plan for repeat cardiac catheterization at this time (3) Heart failure: Code(s): I50.9 - Heart failure, unspecified Status: Acute Assessment and Plan: Systolic heart failure likely related to ischemic cardiomyopathy -echocardiogram done on 11/02/2022 showed EF of 20-25% with severe global systolic dysfunction, moderate to severe mitral regurg, moderate tricuspid regurg, severely elevated pulmonary artery pressures with RVSP of 71 mmHg -echocardiogram done on 10/12 at [facility] also showed EF less than 40% with RV distension RV dysfunction, left ventricle hypertrophy severe MR moderate to severe TR and 4 chamber enlargement -hold beta-keshia , furosemide due to shock -cardiology following -patient has been drinking significant amount of free fluid. I again spoke to patient and emphasized importance of free fluid restriction and also discussed with the nurse. (4) CAD (coronary artery disease): Code(s): I25.10 - Atherosclerotic heart disease of [place] coronary artery without angina pectoris Status: Acute Assessment and Plan: Chest pain likely related to ischemia, EKG did not show any acute ST-T change -troponins elevated blood have plateaued -continue ranolazine, Plavix and beta-keshia -hold statin due to elevated liver enzymes (5) Arrhythmia: Code(s): I49.9 - Cardiac arrhythmia, unspecified Status: Acute Assessment and Plan: Patient had nonsustained V-tach and PVCs in the intermediate Unit and was on amiodarone for brief. But now off -likely related to NSTEMI, ischemic cardiomyopathy, pulmonary hypertension -monitor -patient now back on beta-keshia (6) Hyperlipidemia: Code(s): E78.5 - Hyperlipidemia, unspecified Status: Acute Assessment and Plan: atorvastatin on hold due to elevated liver enzymes (7) Elevated LFTs: Code(s): R79.89 - Other specified abnormal findings of blood chemistry Status: Acute Assessment and Plan: Likely related to shock liver secondary to hypotension, severe cardiomyopathy -negative hepatitis panel - RUQ ultrasound Hepatomegaly. Echogenic liver, most commonly due to steatosis but also can be seen with hepatitis and fibrosis. Nonspecific gallbladder wall thickening. -continue monitor liver enzyme -normal ammonia (8) Shock liver: Code(s): K72.00 - Acute and subacute hepatic failure without coma Status: Acute Assessment and
[2022-11-06] MEDS: SODIUM CHLORIDE 0.9% IV 500 ML IV CONT (12:26)
[2022-11-06] MEDS: DOBUTamine 250 MG/D5W 250 ML 250 MG/250 ML BAG 17.84 MG IV CONT (15:13)
[2022-11-06 15:34] LABS: Lactic Acid Reflex 4.7 mmol/L (0.7-2.0)
--- NOTE | 2022-11-06 15:50 | PM.PNCARD ---
Progress Note: A&P Assessment and Plan (1) Chest pain: Code(s): R07.9 - Chest pain, unspecified Status: Acute (2) Ischemic cardiomyopathy: Code(s): I25.5 - Ischemic cardiomyopathy Status: Acute Plan This is a 62-year-old man with severe ischemic cardiomyopathy remote history of surgical a recent history of percutaneous revascularization elsewhere. Normally receives his cardiovascular care at the [facility]. Presented here over this past weekend short of breath severe respiratory distress and ventricular arrhythmias had to be placed into the ICU and treated with intravenous amiodarone and nitroglycerin. He has been diuresed some he feels better and is anticipating transfer to higher level of care. Family states he has been accepted in transfer to [facility] although at the moment there are apparently no beds available. The patient has profound left ventricular dysfunction based on echocardiography here. Hemodynamics are compatible with low cardiac output/ low level cardiogenic shock. hemodynamically we cannot do anymore in terms of medical therapy for LV dysfunction. Has a very poor prognosis which seems obvious to everyone. He will need advanced hemodynamic support if there is any hope of providing this man with any chance of ongoing survival. These are service is not available here at [facility]. We will continue to assist with aggressive supportive care while he is here. Gus Orellana MD [facility] Subjective Date/time seen: date of service:11/06/22 15:50 Exam Narrative: Older obese male who appears tired, no respiratory distress. Significant other at bedside. Const: General: cooperative, comfortable and uncomfortable; No confusion Orientation/consciousness: oriented to person, patient oriented x3 and No confusion Other: No resp distress Patient appears to be alert and responsive although drifts off to sleep quickly. HENMT: Mouth: Yes moist mucous membranes Eyes: General: appearance normal, both eyes and all related structures Neck: Neck: supple and No no JVD ( JVD noted) Carotids: no bruits Resp: Effort & Inspection: normal respiratory effort Auscultation: clear to auscultation bilaterally, rales (right base) and diminished lung sounds Cardio: Rate: regular rate Rhythm: regular rhythm Heart sounds: Murmur heart sound present ( 1-2/6 BRIAN left and right upper sternal border, LL sternal border) Other: distant heart tones, quiet precordium Dorsalis pedis pulses decreased but intact. Minimal chest wall tenderness GI: Inspection: normal to inspection Other: no hepatosplenomegaly. Obese. Skin: General skin exam: normal color and no rashes or lesions noted Neuro: General: oriented to person, patient oriented x3 and No confusion Extrem: Right lower extremity: no edema Left lower extremity: no edema Other: hands and forefeet are lukewarm Psych: Appearance: grossly normal Mental Status: mental status grossly normal Affect: No normal affect ( withdrawn) Objective Data Vital Signs Vital Signs: Vital Signs - 24 hr 11/05/22 16:00 11/05/22 16:00 11/05/22 17:59 Temperature Pulse Rate 77 78 77 Respiratory Rate 20 Blood Pressure 96/82 L Pulse Oximetry 98 Oxygen Delivery Oxygen Flow Rate 11/05/22 17:59 11/05/22 20:00 11/05/22 20:10 Temperature 35.8 C L Pulse Rate 77 74 73 Respiratory Rate 22 H 18 Blood Pressure 101/76 103/77 Pulse Oximetry 98 96 Oxygen Delivery Oxygen Flow Rate 11/05/22 20:27 11/05/22 20:00 11/05/22 22:00 Temperature Pulse Rate 74 Respiratory Rate Blood Pressure Pulse Oximetry 96 Oxygen Delivery CPAP Nasal Cannula Oxygen Flow Rate 3 11/05/22 22:00 11/05/22 20:00 11/06/22 00:00 Temperature Pulse Rate 74 73 Respiratory Rate 18 Blood Pressure 115/80 Pulse Oximetry 98 95 Oxygen Delivery Nasal Cannula Oxygen Flow Rate 3
[2022-11-06 17:17] LABS: Ammonia 10 umol/L (9-30)
--- NOTE | 2022-11-06 17:53 | PM.TDS ---
Transfer Discharge Sum: Prov Provider Date of admission: 11/01/22 10:51 Primary care physician: PEACE ADMIN,KESHAV Admitting clinician: Gus Londono MD Consults: 11/02/22 Consult to Physician Routine Comment: Consulting Provider: Gus Orellana call worker/MD group to consult: cardiology Reason for consultation: chest pain Has provider been notified: Yes Consult to Physician Routine Comment: Consulting Provider: Adam Julian call worker/MD group to consult: ICU Reason for consultation: unstable angina Has provider been notified: No 11/04/22 Consult to Physician Routine Comment: left message w office @ 1006 Consulting Provider: Elias Dai call worker/MD group to consult: Nephro Reason for consultation: JOHNNY Has provider been notified: Yes DS: Admitting Diagnosis Discharge Date 11/06/22 Admitting Diagnosis Shortness of breath DS: Discharge Diagnosis Discharge Diagnosis (1) Shock: Code(s): R57.9 - Shock, unspecified Status: Acute (2) Chest pain: Code(s): R07.9 - Chest pain, unspecified Status: Acute (3) Heart failure: Code(s): I50.9 - Heart failure, unspecified Status: Acute (4) CAD (coronary artery disease): Code(s): I25.10 - Atherosclerotic heart disease of [place] coronary artery without angina pectoris Status: Acute (5) Arrhythmia: Code(s): I49.9 - Cardiac arrhythmia, unspecified Status: Acute (6) Hyperlipidemia: Code(s): E78.5 - Hyperlipidemia, unspecified Status: Acute (7) Elevated LFTs: Code(s): R79.89 - Other specified abnormal findings of blood chemistry Status: Acute (8) Shock liver: Code(s): K72.00 - Acute and subacute hepatic failure without coma Status: Acute (9) Coagulopathy: Code(s): D68.9 - Coagulation defect, unspecified Status: Acute (10) Acute on chronic renal failure: Code(s): N17.9 - Acute kidney failure, unspecified; N18.9 - Chronic kidney disease, unspecified Status: Acute (11) Hyperkalemia: Code(s): E87.5 - Hyperkalemia Status: Acute Transfer Discharge Sum: Med Medications Active and Home Medications: Home Medications atorvastatin 80 mg tablet 80 mg PO DAILY 06/09/20 [History Confirmed 11/01/22] clopidogrel 75 mg tablet 75 mg PO DAILY 06/09/20 [History Confirmed 11/01/22] furosemide 20 mg tablet (Lasix) 80 mg PO BID 06/09/20 [History Confirmed 11/01/22] empagliflozin 25 mg tablet 12.5 mg PO DAILY 07/29/22 [History Confirmed 11/01/22] apixaban 5 mg tablet 5 mg PO BID 11/01/22 [History Confirmed 11/01/22] cetirizine 10 mg tablet (All Day Allergy (cetirizine)) 10 mg PO DAILY 11/01/22 [History Confirmed 11/01/22] cholecalciferol (vitamin D3) 50 mcg (2,000 unit) tablet 50 mcg PO DAILY 11/01/22 [History Confirmed 11/01/22] duloxetine 20 mg capsule,delayed release 20 mg PO DAILY 11/01/22 [History Confirmed 11/01/22] hydroxyzine HCl 25 mg tablet 25 mg PO BID PRN anxiety 11/01/22 [History Confirmed 11/01/22] melatonin 3 mg tablet 6 mg PO HS PRN Sleep 11/01/22 [History Confirmed 11/01/22] metoprolol succinate 25 mg tablet,extended release 24 hr 12.5 mg PO DAILY 11/01/22 [History Confirmed 11/01/22] pantoprazole 40 mg tablet,delayed release 40 mg PO QAM 11/01/22 [History Confirmed 11/01/22] ranolazine 500 mg tablet,extended release,12 hr 500 mg PO Q12H 11/01/22 [History Confirmed 11/01/22] Active Medications Atorvastatin Calcium (Atorvastatin 40 Mg Tablet) 80 mg PO DAILY [facility] Last Admin: 11/03/22 08:36 Dose: 80 mg Clopidogrel Bisulfate (Clopidogrel Bisulfate 75 Mg Tablet) 75 mg PO DAILY [facility] Last Admin: 11/04/22 09:42 Dose: 75 mg Duloxetine HCl (Duloxetine Hcl 20 Mg Capsule.) 20 mg PO DAILY [facility] Last Admin: 11/06/22 09:24 Dose: 20 mg Empagliflozin (Empagliflozin 12.5 Mg Tablet) 12.5 mg PO DAILY [facility] Last Admin: 11/04/22 09:42 Dose: 12.5 mg Furosemide (Furosemide Inj 100 Mg/1
== END 2022-11-06 20:15 | disposition short-term general hospital (02) | DRG 291 ==
LOC: ANHED 10:51 → ANHIMU 11:14 → ANHICU 11-02 15:05
PROVIDERS: Internal Medicine; Nurse Practitioner; Physician Assistant; Student in an Organized Health Care Education/Training Program; Admitting Provider Chiropractor; Emergency Provider Emergency Medicine; Visit Provider Internal Medicine
DX: I13.0 Hypertensive heart and chronic kidney disease with heart failure and stage 1 through stage 4 chronic kidney disease, or unspecified chronic kidney disease (principal); K72.00 Acute and subacute hepatic failure without coma; R57.0 Cardiogenic shock; I47.29 Other ventricular tachycardia; N17.9 Acute kidney failure, unspecified; D68.9 Coagulation defect, unspecified; I50.22 Chronic systolic (congestive) heart failure; E78.5 Hyperlipidemia, unspecified; E87.5 Hyperkalemia; E87.6 Hypokalemia; E66.9 Obesity, unspecified; F41.9 Anxiety disorder, unspecified; F32.A Depression, unspecified; G47.33 Obstructive sleep apnea (adult) (pediatric); I43 Cardiomyopathy in diseases classified elsewhere; I48.0 Paroxysmal atrial fibrillation; I25.2 Old myocardial infarction; I25.10 Atherosclerotic heart disease of native coronary artery without angina pectoris; I95.9 Hypotension, unspecified; K21.9 Gastro-esophageal reflux disease without esophagitis; N18.30 Chronic kidney disease, stage 3 unspecified; R07.89 Other chest pain; Z20.822 Contact with and (suspected) exposure to COVID-19; Z90.49 Acquired absence of other specified parts of digestive tract; Z95.1 Presence of aortocoronary bypass graft; Z95.5 Presence of coronary angioplasty implant and graft; Z96.653 Presence of artificial knee joint, bilateral; Z96.612 Presence of left artificial shoulder joint; Z79.02 Long term (current) use of antithrombotics/antiplatelets; R79.89 Other specified abnormal findings of blood chemistry; Z95.810 Presence of automatic (implantable) cardiac defibrillator; Z91.199 Patient's noncompliance with other medical treatment and regimen due to unspecified reason; Z68.31 Body mass index [BMI] 31.0-31.9, adult
CPT/HCPCS: 36415; 36430; 36600; 71045; 71046; 74019; 76705; 80048; 80053; 80074; 81001; 82140; 82375; 82550; 82570; 82805; 82948; 83050; 83605; 83735; 83880; 84100; 84145; 84300; 84443; 84484; 85025; 85055; 85380; 85384; 85610; 85730; 86850; 86900; 86901; 87040; 87086; 87636; 93005; 96374; 99285; A9270; C1751; C8929; C9113; J0282; J0612; J0692; J1170; J1250; J1265; J1644; J1720; J1815; J1940; J2060; J2270; J2405; J3370; J3430; J7030; J7040; J7050; P9017; P9047; Q9957